=== PATIENT | female | born 1955 | race Caucasian/White ===

== ENCOUNTER 2020-03-13 07:47 | Outpatient (REF) | payer BC, SELFPAY ==
[2020-03-13 11:46] LABS: Estimated Average Glucose 223 mg/dL; Hemoglobin A1c % 9.4 %
[2020-03-13 12:01] LABS: Alanine Aminotransferase 44 U/L (0-31); Albumin Level 4.3 g/dL (3.5-5.0); Alkaline Phosphatase 57 U/L (39-117); Anion Gap 16 (12-20); Aspartate Amino Transferase 25 U/L (5-31); Bilirubin Total 0.6 mg/dL (0.0-1.0); Blood Urea Nitrogen 14 mg/dL (9-16); Calcium 9.2 mg/dL (8.4-10.2); Carbon Dioxide 30 mmol/L (22-29); Chloride 98 mmol/L (96-108); Cholesterol 148 mg/dL; Estimated Glomerular Filt Rate > 60; Glucose Fasting 217 mg/dL (60-99); HDL Cholesterol 40 mg/dL; LDL Cholesterol Calculated 77 mg/dl; Potassium 4.5 mmol/l (3.3-5.1); Sodium 139 mmol/L (135-145); Total Protein 6.9 g/dL (6.5-8.0); Triglycerides 159 mg/dL
[2020-03-13 12:08] LABS: Vitamin D 25-OH Total 33.2 ng/mL (>30)
[2020-03-13 12:40] LABS: Creatinine Urine 70.85 mg/dL; Microalbum/Creatinine Ratio Ur 9.8 ug/mg cr
== END 2020-03-13 07:48 | disposition home or self-care (01) ==
LOC: HO.HMGCLDS 07:47
PROVIDERS: PCP Internal Medicine; Visit Provider Internal Medicine
DX: E11.9 Type 2 diabetes mellitus without complications (principal); E66.01 Morbid (severe) obesity due to excess calories; E78.5 Hyperlipidemia, unspecified; I10 Essential (primary) hypertension; M81.0 Age-related osteoporosis without current pathological fracture
CPT/HCPCS: 80053; 80061; 82043; 82306; 83036

== ENCOUNTER 2020-07-10 06:16 | Outpatient (REF) | payer BC, SELFPAY ==
[2020-07-10 11:24] LABS: Estimated Average Glucose 212 mg/dL
[2020-07-10 11:45] LABS: Alanine Aminotransferase 39 U/L (0-31); Albumin Level 4.4 g/dL (3.5-5.0); Alkaline Phosphatase 58 U/L (39-117); Anion Gap 14 (12-20); Aspartate Amino Transferase 21 U/L (5-31); Bilirubin Total 0.7 mg/dL (0.0-1.0); Blood Urea Nitrogen 28 mg/dL (9-16); Calcium 9.4 mg/dL (8.4-10.2); Carbon Dioxide 29 mmol/L (22-29); Chloride 98 mmol/L (96-108); Cholesterol 143 mg/dL; Estimated Glomerular Filt Rate > 60; Glucose Fasting 262 mg/dL (60-99); HDL Cholesterol 42 mg/dL; LDL Cholesterol Calculated 71 mg/dl; Potassium 4.3 mmol/L (3.3-5.1); Sodium 137 mmol/L (135-145); Total Protein 7.1 g/dL (6.5-8.0); Triglycerides 153 mg/dL
[2020-07-10 12:07] LABS: Vitamin D 25-OH Total 36.6 ng/mL (>30)
== END 2020-07-10 06:17 | disposition home or self-care (01) ==
LOC: HO.HMGCLDS 06:16
PROVIDERS: PCP Internal Medicine; Visit Provider Internal Medicine
DX: E11.65 Type 2 diabetes mellitus with hyperglycemia (principal); E66.01 Morbid (severe) obesity due to excess calories; M81.0 Age-related osteoporosis without current pathological fracture; I10 Essential (primary) hypertension; E78.5 Hyperlipidemia, unspecified; Z79.4 Long term (current) use of insulin
CPT/HCPCS: 36415; 80053; 80061; 82043; 82306; 83036

== ENCOUNTER 2021-01-23 07:07 | Outpatient (REF) | payer BC, SELFPAY ==
[2021-01-23 12:12] LABS: Alanine Aminotransferase 41 U/L (0-31); Anion Gap 15 (12-20); Aspartate Amino Transferase 29 U/L (5-31); Blood Urea Nitrogen 13 mg/dL (9-16); Calcium 9.3 mg/dL (8.4-10.2); Carbon Dioxide 28 mmol/L (22-29); Chloride 102 mmol/L (96-108); Cholesterol 141 mg/dL; Estimated Glomerular Filt Rate > 60; Glucose Fasting 177 mg/dL (60-99); HDL Cholesterol 44 mg/dL; LDL Cholesterol Calculated 66 mg/dl; Potassium 4.2 mmol/L (3.3-5.1); Sodium 141 mmol/L (135-145); Triglycerides 159 mg/dL
[2021-01-23 12:15] LABS: Vitamin D 25-OH Total 36.1 ng/mL (>30)
== END 2021-01-23 07:08 | disposition home or self-care (01) ==
LOC: HO.HMGCLDS 07:07
PROVIDERS: PCP Internal Medicine; Visit Provider Internal Medicine
DX: E11.65 Type 2 diabetes mellitus with hyperglycemia (principal); E78.5 Hyperlipidemia, unspecified; I10 Essential (primary) hypertension; M81.0 Age-related osteoporosis without current pathological fracture; N95.1 Menopausal and female climacteric states; Z79.4 Long term (current) use of insulin
CPT/HCPCS: 36415; 80048; 80061; 82306; 84450; 84460

== ENCOUNTER 2021-05-24 08:50 | Outpatient (REF) | payer BC, SELFPAY ==
--- NOTE | ~2021-05-24 | MM_ITS ---
EXAMINATION: MM SCREENING DIGITAL BREAST TOMOSYNTHESIS, BILATERAL CLINICAL INFORMATION: Screening. Asymptomatic. The lifetime risk of breast cancer based on the Tyrer-Cuzick Model is 4.6%. COMPARISON: Mammography: December 10, 2018 and studies dating back to March 27, 2010 TECHNIQUE: Digital breast tomosynthesis is performed in both the craniocaudal and mediolateral oblique views along with computer-aided detection (CAD). Synthesized 2D images are generated from the tomosynthesis. Additional left breast exaggerated craniocaudal view performed. FINDINGS: The breasts are almost entirely fatty (ACR BI-RADS breast composition Category a). There are no significant masses, abnormal calcifications, or other abnormalities. MM/MM tomosynthesis screening BI IMPRESSION: There are no significant changes from prior study. ASSESSMENT: BI-RADS 1: Negative RECOMMENDATION: Routine annual mammography screening. This patient's information was entered into a reminder system with a target due date for their next mammogram.
--- NOTE | ~2021-05-24 | MM_ITS ---
EXAMINATION: BONE DENSITOMETRY CLINICAL INDICATION: Encounter for screening for osteoporosis. COMPARISON: Previous BD dated 04/15/2019 and baseline BD dated 12/14/1999. TECHNIQUE: Using a [employer] DXA System (software version: 13.1) manufactured by [employer], dual-energy x-ray absorptiometry was performed of the lumbar spine and left hip. The images are of good technical quality. Summary results are attached. FINDINGS: AP SPINE L2-L4 (excluding L1): The data of L1-L4 has been changed to exclude the L1 vertebral body, because degenerative changes at this level may cause overestimation of lumbar spine density. Current: BMD 1.019 g/cm2, Z-score -1.0, T-score -1.5, osteopenia, 8.9% increase from previous, 1.3% increase from baseline (<5% change is not significant). Prior: BMD 0.936 g/cm2. Baseline: BMD 1.006 g/cm2. LEFT FEMUR, NECK: Current: BMD 0.433 g/cm2, Z-score -3.5, T-score -4.4, osteoporosis. Prior: BMD 0.754 g/cm2. Baseline: BMD 0.920 g/cm2. LEFT FEMUR, TOTAL: Current: BMD 0.477 g/cm2, Z-score -3.7, T-score -4.2, osteoporosis, 46.3% decrease from previous, 50.3% decrease from baseline (<5% change is not significant). Prior: BMD 0.888 g/cm2. Baseline: BMD 0.960 g/cm2. IDENTIFIED RISK FACTORS: Menopause, hysterectomy, bilateral oophorectomy. HISTORY OF FRACTURE: None listed. MEDICATIONS: Calcium supplements or multivitamin, vitamin D. MM/XR DEXA axial skeleton IMPRESSION: 1. DIAGNOSIS: Osteoporosis based on the lowest T-score value of -4.4 in the femoral neck applying World Health Organization criteria. 2. 10-YEAR FRACTURE RISK PREDICTION, FRAX: According to the guidelines, FRAX calculation should only be performed on patients in the osteopenia bone density category. 3. Treatment Recommendations: NOF guidelines recommend consideration for treatment in postmenopausal women and men age 50 and older presenting with the following: -A hip or vertebral (clinical or morphometric) fracture. -T-score less than or equal to -2.5 at the femoral neck or spine after appropriate evaluation to exclude secondary causes. -Low bone mass at the hip or spine and a 10-year fracture probability by FRAX of greater than or equal to 3% for hip fracture or greater than or equal to 20% for major osteoporotic fracture based on the [place] adapted WHO algorithm. 4. Other Recommendations: All treatment decisions require clinical judgment and consideration of individual patient factors, including patient preferences, comorbidities, previous drug use, risk factors not captured in the FRAX model (e.g. frailty, falls, vitamin D deficiency, increased bone turnover, interval significant decline in bone density) and possible under or overestimation of fracture risk by FRAX. Additional medical evaluation for secondary cause of low bone mineral density may be appropriate. FUTURE SCAN RECOMMENDATION: People with diagnosed cases of osteoporosis or at high risk for fracture should have regular bone mineral density tests. For patients eligible for Medicare, routine testing is allowed once every 2 years. The testing frequency can be increased to one year for patients who have rapidly progressing disease, those who are receiving or discontinuing medical therapy to restore bone mass, or have additional risk factors.
== END 2021-05-24 08:51 | disposition home or self-care (01) ==
LOC: HO.MAMMO 08:50
PROVIDERS: PCP Internal Medicine; Visit Provider Internal Medicine
DX: Z12.31 Encounter for screening mammogram for malignant neoplasm of breast (principal); Z13.820 Encounter for screening for osteoporosis; M81.0 Age-related osteoporosis without current pathological fracture; Z78.0 Asymptomatic menopausal state; Z79.899 Other long term (current) drug therapy
CPT/HCPCS: 77063; 77067; 77080

== ENCOUNTER 2021-08-20 07:14 | Outpatient (REF) | payer BC, SELFPAY ==
[2021-08-20 12:36] LABS: Alanine Aminotransferase 43 U/L (0-31); Anion Gap 12 (12-20); Aspartate Amino Transferase 28 U/L (5-31); Blood Urea Nitrogen 20 mg/dL (9-16); Calcium 9.3 mg/dL (8.4-10.2); Carbon Dioxide 31 mmol/L (22-29); Chloride 99 mmol/L (96-108); Cholesterol 154 mg/dL; Estimated Glomerular Filt Rate > 60; Glucose Fasting 278 mg/dL (60-99); HDL Cholesterol 42 mg/dL; LDL Cholesterol Calculated 81 mg/dl; Potassium 4.7 mmol/L (3.3-5.1); Sodium 137 mmol/L (135-145); Triglycerides 155 mg/dL
[2021-08-20 12:38] LABS: Vitamin D 25-OH Total 36.2 ng/mL (>30)
== END 2021-08-20 07:15 | disposition home or self-care (01) ==
LOC: HO.HMGCLDS 07:14
PROVIDERS: Visit Provider Internal Medicine
DX: E78.5 Hyperlipidemia, unspecified (principal); I10 Essential (primary) hypertension; M81.0 Age-related osteoporosis without current pathological fracture; N95.1 Menopausal and female climacteric states
CPT/HCPCS: 36415; 80048; 80061; 82306; 84450; 84460

== ENCOUNTER 2022-02-26 06:56 | Outpatient (REF) | payer MEDICARE, SELFPAY ==
[2022-02-26 12:19] LABS: Alanine Aminotransferase 40 U/L (0-31); Anion Gap 16 (12-20); Aspartate Amino Transferase 22 U/L (5-31); Blood Urea Nitrogen 23 mg/dL (9-16); Calcium 9.9 mg/dL (8.4-10.2); Carbon Dioxide 30 mmol/L (22-29); Chloride 100 mmol/L (96-108); Cholesterol 157 mg/dL; Estimated Glomerular Filt Rate > 60; Glucose Fasting 186 mg/dL (60-99); HDL Cholesterol 45 mg/dL; LDL Cholesterol Calculated 83 mg/dl; Potassium 4.8 mmol/L (3.3-5.1); Sodium 141 mmol/L (135-145); Triglycerides 149 mg/dL
== END 2022-02-26 06:57 | disposition home or self-care (01) ==
LOC: HO.CHCLDS 06:56
PROVIDERS: PCP Internal Medicine; Visit Provider Internal Medicine
DX: E78.5 Hyperlipidemia, unspecified (principal); I10 Essential (primary) hypertension
CPT/HCPCS: 36415; 80048; 80061; 84450; 84460

== ENCOUNTER 2022-03-05 10:57 | Outpatient (REF) | payer MEDICARE, SELFPAY ==
[2022-03-05 15:17] LABS: Creatinine Urine 67.59 mg/dL; Microalbum/Creatinine Ratio Ur 11.8 ug/mg cr
== END 2022-03-05 10:58 | disposition home or self-care (01) ==
LOC: HO.HMGCLDS 10:57
PROVIDERS: PCP Internal Medicine; Visit Provider Internal Medicine
DX: E11.65 Type 2 diabetes mellitus with hyperglycemia (principal); Z79.4 Long term (current) use of insulin
CPT/HCPCS: 82043

== ENCOUNTER 2022-06-06 10:55 | Outpatient (REF) | payer MEDICARE, SELFPAY ==
--- NOTE | ~2022-06-06 | MM_ITS ---
EXAMINATION: MM SCREENING DIGITAL BREAST TOMOSYNTHESIS, BILATERAL CLINICAL INFORMATION: Screening. Asymptomatic. The lifetime risk of breast cancer based on the Tyrer-Cuzick Model is 4.2%. COMPARISON: Mammography: May 24, 2021 and studies dating back to March 27, 2010 TECHNIQUE: Digital breast tomosynthesis is performed in both the craniocaudal and mediolateral oblique views along with computer-aided detection (CAD). Synthesized 2D images are generated from the tomosynthesis. FINDINGS: There are scattered areas of fibroglandular density (ACR BI-RADS breast composition Category b). There are no significant masses, abnormal calcifications, or other abnormalities. MM/MM tomosynthesis screening BI IMPRESSION: No significant changes from prior exam. ASSESSMENT: BI-RADS 1: Negative RECOMMENDATION: Routine annual mammography screening. This patient's information was entered into a reminder system with a target due date for their next mammogram.
== END 2022-06-06 10:56 | disposition home or self-care (01) ==
LOC: HO.MAMMO 10:55
PROVIDERS: PCP Internal Medicine; Visit Provider Internal Medicine
DX: Z12.31 Encounter for screening mammogram for malignant neoplasm of breast (principal)
CPT/HCPCS: 77063; 77067

== ENCOUNTER 2022-08-28 06:46 | Outpatient (REF) | payer MEDICARE, SELFPAY ==
[2022-08-28 11:59] LABS: Alanine Aminotransferase 40 U/L (0-31); Aspartate Amino Transferase 24 U/L (5-31); Cholesterol 132 mg/dL; HDL Cholesterol 40 mg/dL; LDL Cholesterol Calculated 69 mg/dl; Triglycerides 116 mg/dL
== END 2022-08-28 06:47 | disposition home or self-care (01) ==
LOC: HO.HMGCLDS 06:46
PROVIDERS: PCP Internal Medicine; Visit Provider Internal Medicine
DX: E78.5 Hyperlipidemia, unspecified (principal); I10 Essential (primary) hypertension
CPT/HCPCS: 36415; 80061; 84450; 84460

== ENCOUNTER 2022-09-02 10:23 | Outpatient (AMB) | payer MEDICARE, SELFPAY ==
--- NOTE | 2022-09-02 10:29 | A.OFFPC_ITS ---
Vital Signs 09/02/22 10:32 Height 5 ft 4.5 in Weight 265 lb BMI 44.8 BP 146/66 H Blood Pressure Location Lt brachial Position Sitting Pulse 94 Pulse Source Pulse Oximeter Pulse Oximetry (%) 95 Oxygen Delivery Method Room Air Intake Visit Reasons: f/u lipids and HTN Intake Note: Pt is here today to f/u HTN and lipids Allergies iodine Allergy (Unknown, Verified 04/04/23 08:17) Hives Medication List - Last Reconciled 09/02/22 by Susan Shah MD cholecalciferol (vitamin D3) 50 mcg PO DAILY hydrochlorothiazide 25 mg PO DAILY insulin pump cart,automated,BT (Omnipod 5 G6 Pods (Gen 5) subcutaneous cartridge) As directed insulin regular hum U-500 conc (Humulin R U-500 (Concentrated) Insulin) Via Omnipod losartan 100 mg PO DAILY 90 days losartan-hydrochlorothiazide 100-25 mg 1 tab PO DAILY metformin 1,000 mg PO BID jdvcszdyxcit-Lj-kglw-minerals (Multiple Vitamin, Womens tablet) tabs PO semaglutide (Ozempic) 2 mg subcut QWEEK simvastatin 40 mg PO BEDTIME Tobacco use date assessed: 09/02/22 Fall risk assessment: No Falls in past year Last assessed Fall Risk: 09/02/22 HPI f/u lipids and HTN HPI Details 67-year-old lady Here today for follow-u p on her hypertension and dyslipidemia. Currently taking losartan hydrochlorothiazide, and simvastatin . Has been feeling well with no complaints at present time. Blood pressure today however is not at goal of less than 130/90 PFSH Medical History Facial skin lesion Menopause syndrome Endometrial cancer Breast cancer screening by mammogram Type 2 diabetes mellitus with hyperglycemia, with long-term current use of insulin Morbid obesity Osteoporosis Essential hypertension Dyslipidemia Surgical History Hx of colonoscopy History of mammogram History of knee surgery History of rotator cuff surgery History of total hysterectomy Hx of cholecystectomy Family History Father History of CVA (cerebrovascular accident) Mother CVD (cardiovascular disease) Heart disease Maternal Grandmother No problems noted. Maternal Aunt History of heart bypass surgery Maternal Uncle Alzheimer's disease Dementia Paternal Aunt Diabetes mellitus Paternal Uncle Diabetes mellitus Brother No problems noted. Brother No problems noted. Sister No problems noted. Other Substance use disorder Social History Housing: House Alcohol intake: current Alcohol intake frequency: a few times a month Patient Tobacco Use Status: Former Tobacco user Years Smoked: 26 years ago e-Cigarette/Vaping Use: Never Used Current occupational status: retired Cognitive needs: No Hearing needs: No Vision needs: Yes Questionnaire PHQ-9 Over the last 2 weeks, how often have you been bothered by any of the following problems? 1. Little interest or pleasure in doing things: not at all 2. Feeling down, depressed, or hopeless: not at all 3. Trouble falling or staying asleep, or sleeping too much: not at all 4. Feeling tired or having little energy: not at all 5. Poor appetite or overeating: not at all 6. Feeling bad about yourself - or that you are a failure or have let yourself or your family down: not at all 7. Trouble concentrating on things, such as reading the newspaper or watching television: not at all 8. Moving or speaking so slowly that other people could have noticed. Or the opposite - being so fidgety or restless that you have been moving around a lot more than usual: not at all 9. Thoughts that you would be better off or of hurting yourself in some way: not at all Total score: 0 Depression Screening Interpretation: Negative 08935 - PHQ-9 Billing: Yes Source: Developed by Drs. Erick Thayer, Laura Pope, Daniel Acosta and colleagues, with an educational mariel from [employer]. Thrive Questionnaire Date Thrive assessed: 09/02/22 I am a: Patient What is your living situation today?: I have a steady place to live Within the past 12 months, did the food you bought not last and you didn't have the money to get more?: Never true Within the past 12 months, did you worry whether your food would run out before you got money to buy more?: Never true Do you have trouble paying for medicines?: No Do you have trouble getting transportation to medical appointments?: No Do you have trouble paying your heating and electricity bill?: No Do you have trouble taking care of your child, family member or friend?: No Do you have trouble with day-to-day activities such as bathing, preparing meals, shopping, managing finances, etc.?: No Are you currently unemployed and looking for a job?: No Are you interested in more education?: No AUDIT C Alcohol Use Questionnaire (AUDIT-C) 1. How often do you have a drink containing alcohol?: Monthly or less 2. How many drinks containing alcohol do you have on a typical day when you are drinking?: 1 or 2 3. How often do you have six or more drinks on one occasion?: Never Total Score: 1 WALT-7 AMB Questionnaire WALT-7 Date WALT - 7 assessed: 09/02/22 Feeling nervous, anxious, or on edge: 0 = Not at all Not being able to stop or control worryin = Not at all Worrying too much about different things: 0 = Not at all Trouble relaxin = Not at all Being so restless that it is hard to sit still: 0 = Not at all Becoming easily annoyed or irritable: 0 = Not at all Feeling afraid as if something awful might happen: 0 = Not at all Total WALT-7 score (0-4 normal; 5-9 mild; 10-14 moderate; 15-21 severe): 0 Source: Developed by Drs. Erick Thayer, Laura Pope, Daniel Acosta and colleagues, with an educational mariel from [employer]. WALT-7 Assessment Billing WALT-7 Assessment Tool: WALT-7 Assessment 69626 Review of Systems Const Denies body aches, Denies fever(s), Denies headache(s), Denies malaise and Denies weakness Eyes Details: has appt with [facility] this pm Denies change in vision, Denies eye discharge and Denies itchy eyes ENT Denies vertigo, Denies dizziness, Denies headache(s), Denies nasal congestion, Denies nasal discharge, Denies post nasal drip and Denies tinnitus Card Denies chest pain, Denies lightheadedness, Denies palpitations and Denies dyspnea Resp Denies chest congestion, Denies cough, Denies dyspnea and Denies wheezing GI Denies abdominal pain, Denies change in bowel habits and Denies heartburn Denies urinary frequency, Denies dysuria and Denies urinary urgency Musc Denies myalgias, Reports arthralgias, Denies muscle cramps and Reports stiffness Skin/Breast Denies lesions and Denies rash Neuro Denies vertigo, Denies dizziness, Denies headache(s) and Denies weakness Psych Reports no additional complaints Endo Denies polydipsia, Denies polyuria and Denies palpitations Roel/Lymph Denies easy bruising Aller/Immun Denies itchy eyes, Denies seasonal rhinorrhea and Denies wheezing Physical exam (Primary Care) Vital Signs: Last Vital Signs Pulse 94 09/02/22 10:32 BP 146/66 H 09/02/22 10:32 Pulse Ox 95 09/02/22 10:32 Oxygen Delivery Method Room Air 09/02/22 10:32 BMI result Body Mass Index 44.8 Tobacco/Smoking Status: Tobacco use Status Tobacco use date assessed 09/02/22 09/02/22 10:34 Patient Tobacco Use Status Former Tobacco user 09/02/22 10:30 e-Cigarette/Vaping Use Never Used 09/02/22 10:30 PHQ-9: PHQ-9 Score PHQ-9: Total score 0 09/02/22 11:09 Depression Screening Interpretation: Negative Thrive Assessment: Date of Thrive Assessment Date Thrive assessed 09/02/22 09/02/22 11:09 Const General: comfortable, no acute distress and alert Nutritional Appearance: obese morbidly obese Orientation/consciousness: patient oriented x3 HENMT Head: Yes normocephalic Ears: external ears normal Face and sinus: Yes face symmetric Mouth: Normal oral and palatal mucosa present, oropharynx normal and moist mucous membranes Eyes General: appearance normal, both eyes and all related structures Neck Neck: Yes full ROM, Yes no lymphadenopathy and Yes supple Resp Auscultation: clear to auscultation bilaterally Cardio Other: S1-S2 present regular rate and rhythm GI Other: Obese, soft, nontender, no mass palpated Skin General skin exam: no rashes or lesions noted Neuro General: patient oriented x3, gait normal, moves all extremities, Normal light touch and pain sensation and no focal motor deficits Extrem General: Yes full ROM, Yes no joint enlargement, Yes no pedal edema, Yes no calf tenderness and Yes normal gait Results Reviewed Results Reviewed: RUN: 09/02/22 1046 PAGE 1 [facility] [address] [place] [id number] Wave Soldering Machine Operator: Bob Khan M.D. Specimen Inquiry Name: Bhavya Ko Age/Sex: 66/F : 1955 Unit#: [id number] Attend Dr: Susan Shah MD Re08/28/22 Status: DEP REF [facility] Disch: SPEC : [id number] KALE: 08/28/22 STATUS: COMP REQ : [id number] RECD: 08/28/[address]: Susan Shah MD COMP: 08/28/229 ENTERED: 08/28/[address]: ORDERED: AST, ALT, Lipid Panel Test Result Flag Reference Site AST (GOT) 24 5-31 U/L ALT (GPT) 40 H 0-31 U/L Triglyceride 116 mg/dL Desirable Triglyceride: less than 150 mg/dL Borderline High Triglyceride 150-199 mg/dL High Triglyceride: 200-499 mg/dL Very High Triglyceride: greater than or equal to 5OO mg/dL Chol 132 mg/dL Desirable Cholesterol: less than 200 mg/dL Borderline High Cholesterol: 200-239 mg/dL High Cholesterol: greater than 239 mg/dL LDL Calculated 69 mg/dl Desirable LDL: less than 100 mg/dL Near Optimal/Above Optimal LDL: 110-129 mg/dL Borderline High LDL: 130-159 mg/dL High LDL: 160-189 mg/dL Very High LDL: greater than or equal to 190 mg/dL HDL 40 mg/dL Desirable HDL: greater than 40 mg/dL Note: This HDL assay may give artificially low results in patients with liver disease. A Assessment and Plan Assessment & Plan (1) Essential hypertension: Code(s): I10 - Essential (primary) hypertension Plan: Blood pressure elevated. Continue losartan and HCTZ, but switched to losartan- HCTZ 100-25 mg tablet to take once a day in a.m.. Blood pressure goal is less than 130/80. . Reinforced importance of following a low sodium diet, getting regular exercise, and lowering stress levels. (2) Dyslipidemia: Code(s): E78.5 - Hyperlipidemia, unspecified Plan: Reviewed recent fasting lipid profile with patient with levels within normal . Continue with simvastatin 40 mg at bedtime , in addition to adherence to low-cholesterol diet and regular exercise, at least 30 minutes 3 to 4 times a week. Advised patient to make healthy food choices, eat more fruits, vegetables, whole grains, wild caught fish and low-fat dairy. Limit amount of meat and fried or fatty food products, as well as processed foods and fast foods. Follow-up scheduled with repeat fasting lipid panel in 6 months. Orders: Orders Alanine Aminotransferase 02/26/23 N95.1 - Menopausal and female climacteric states, E11.65 - Type 2 diabetes mellitus with hyperglycemia, Z79.4 - watermelon inspector (current) use of insulin, M81.0 - Age-related osteoporosis without current pathological fracture, I10 - Essential (primary) hypertension, E78.5 - Hyperlipidemia, unspecified, E66.01 - Morbid (severe) obesity due to excess calories Basic Metabolic Panel Fasting 02/26/23 N95.1 - Menopausal and female climacteric states, E11.65 - Type 2 diabetes mellitus with hyperglycemia, Z79.4 - watermelon inspector (current) use of insulin, M81.0 - Age-related osteoporosis without current pathological fracture, I10 - Essential (primary) hypertension, E78.5 - Hyperlipidemia, unspecified, E66.01 - Morbid (severe) obesity due to excess calories Lipid Panel 02/26/23 N95.1 - Menopausal and female climacteric states, E11.65 - Type 2 diabetes mellitus with hyperglycemia, Z79.4 - MCFP (current) use of insulin, M81.0 - Age-related osteoporosis without current pathological fracture, I10 - Essential (primary) hypertension, E78.5 - Hyperlipidemia, unspecified, E66.01 - Morbid (severe) obesity due to excess calories Aspartate Amino Transferase 02/26/23 N95.1 - Menopausal and female climacteric states, E11.65 - Type 2 diabetes mellitus with hyperglycemia, Z79.4 - MCFP (current) use of insulin, M81.0 - Age-related osteoporosis without current pathological fracture, I10 - Essential (primary) hypertension, E78.5 - Hyperlipidemia, unspecified, E66.01 - Morbid (severe) obesity due to excess calories Vitamin D 25-OH Total 02/26/23 N95.1 - Menopausal and female climacteric states, E11.65 - Type 2 diabetes mellitus with hyperglycemia, Z79.4 - MCFP (current) use of insulin, M81.0 - Age-related osteoporosis without current pathological fracture, I10 - Essential (primary) hypertension, E78.5 - Hyperlipidemia, unspecified, E66.01 - Morbid (severe) obesity due to excess calories Medications: New losartan-hydrochlorothiazide 100-25 mg 1 tab PO DAILY 90 tabs 1RF Coding Level of Care Code Est Pt Level 3 (09743) Diagnoses Essential hypertension I10 Dyslipidemia E78.5 Additional Codes WALT-7 Assessment Billing - WALT-7 Assessment Tool: WALT-7 Assessment 08795 ([id number])
[2022-09-02 10:32] VITALS: BP 146/66; PULSE 94; O2SAT 95; BMI 44.8
== END 2022-09-02 11:14 | disposition home or self-care (01) ==
LOC: HO.HMGC 10:23
PROVIDERS: PCP Internal Medicine; Visit Provider Internal Medicine
DX: I10 Essential (primary) hypertension (principal); E78.5 Hyperlipidemia, unspecified
CPT/HCPCS: 99213

== ENCOUNTER 2023-03-08 07:14 | Outpatient (REF) | payer MEDICARE, SELFPAY ==
[2023-03-08 12:28] LABS: Alanine Aminotransferase 39 U/L (0-31); Anion Gap 13 (12-20); Aspartate Amino Transferase 31 U/L (5-31); Blood Urea Nitrogen 30 mg/dL (9-16); Calcium 9.6 mg/dL (8.4-10.2); Carbon Dioxide 29 mmol/L (22-29); Chloride 100 mmol/L (96-108); Cholesterol 141 mg/dL (<200); Estimated Glomerular Filt Rate > 60; Glucose Fasting 176 mg/dL (60-99); HDL Cholesterol 45 mg/dL (>40); LDL Cholesterol Calculated 75 mg/dL (<100); Potassium 4.4 mmol/L (3.3-5.1); Sodium 138 mmol/L (135-145); Triglycerides 107 mg/dL (<150)
== END 2023-03-08 07:15 | disposition home or self-care (01) ==
LOC: HO.HMGCLDS 07:14
PROVIDERS: PCP Internal Medicine; Visit Provider Internal Medicine
DX: N95.1 Menopausal and female climacteric states (principal); E11.65 Type 2 diabetes mellitus with hyperglycemia; M81.0 Age-related osteoporosis without current pathological fracture; I10 Essential (primary) hypertension; E78.5 Hyperlipidemia, unspecified; E66.01 Morbid (severe) obesity due to excess calories; Z79.4 Long term (current) use of insulin
CPT/HCPCS: 36415; 80048; 80061; 82306; 84450; 84460

== ENCOUNTER 2023-03-11 10:42 | Outpatient (AMB) | payer MEDICARE, SELFPAY ==
[2023-03-11 11:39] VITALS: BP 142/80; PULSE 80; O2SAT 95; BMI 43.4
--- NOTE | 2023-03-11 11:39 | A.OFFVIS_ITS ---
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: No Accompanied by: Self / Same As Patient Allergies iodine Allergy (Unknown, Verified 04/04/23 08:17) Hives Medication List - Last Reconciled 04/04/23 by Susan Shah MD cholecalciferol (vitamin D3) 50 mcg PO DAILY hydrochlorothiazide 25 mg PO DAILY insulin pump cart,automated,BT (Omnipod 5 G6 Pods (Gen 5) subcutaneous cartridge) As directed insulin regular hum U-500 conc (Humulin R U-500 (Concentrated) Insulin) Via Omnipod losartan-hydrochlorothiazide 100-25 mg 1 tab PO DAILY metformin 1,000 mg PO BID gvdbnlpkvfbh-Ek-dnrq-minerals (Multiple Vitamin, Womens tablet) tabs PO semaglutide (Ozempic) 2 mg subcut QWEEK simvastatin 40 mg PO BEDTIME Do you need a note to return to daycare/school/sports/work: No HPI V G0439 HPI Details AWV ? 67 year old lady with hypertension, osteoporosis, dyslipidemia, morbid obesity, type 2 diabetes mellitus with long-term use of insulin, presents for her ? Annual Wellness Visit, initial visit. She is up-to-date with her screening mammogram done 06/06/2022, had screening colonoscopy done 05/01/[address] Bravo, to be repeated again in 2023. 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 She had a bone density scan 05/26/2021 which showed presence of osteoporosis, currently followed by endocrine clinic. She had a fasting lipid panel done 03/08/2023 which showed normal findings, and fasting blood sugar was done 03/08/2023 to same time at 176 mg/dL, has diabetes mellitus currently followed at endocrine clinic. She is up-to-date with her Shingrix vaccination and is due for her COVID pneumonia vaccine and flu shot ? Medical / Social History Reviewed? Past Medical History ?Yes . ? [place] of Care / Care Team list updated ?Yes . ? Surgical/Hospitalization History ?Yes . ? Current Medications (including OTC and supplements) ?Yes . ? Family History ?Yes . ? Tobacco Control form ?Yes . ? AUDIT-C (Alcohol use) form ?Yes . ? Illicit drug use in Social History ?Yes . ? Current diagnosis of depression? ?No ? Appropriate PHQ2/PHQ9 completed ?Yes . ? Data entered by ?Research Assistant Member and reviewed by provider ? Fall Risk ? Fall History? Have you had any falls with injury in the past year? ?No . ? Have you had two or more falls in the past year? ?No . ? Fall Risk Assessment: ?No falls in the past year . ? HRA filled out by the patient, reviewed by Provider and scanned. ? AWV ? Balance? Romberg ?Yes . ? Tandem walk ?Yes . ? Walk and Turn ?Yes . ? Rise from sit to stand ?Yes . ?Vision? Corrective lens ?Yes ? Vision screen ? Up-to-date, goes to the [facility] eye care in [place] ?Hearing? Whisper test ?pass . ?Written Plan?Completed. See Patient Documents.? [facility] Medical History Facial skin lesion Menopause syndrome Endometrial cancer Breast cancer screening by mammogram Type 2 diabetes mellitus with hyperglycemia, with long-term current use of insulin Morbid obesity Osteoporosis Essential hypertension Dyslipidemia Surgical History Hx of colonoscopy History of mammogram History of knee surgery History of rotator cuff surgery History of total hysterectomy Hx of cholecystectomy Family History Father History of CVA (cerebrovascular accident) Mother CVD (cardiovascular disease) Heart disease Maternal Grandmother No problems noted. Maternal Aunt History of heart bypass surgery Maternal Uncle Alzheimer's disease Dementia Paternal Aunt Diabetes mellitus Paternal Uncle Diabetes mellitus Brother No problems noted. Brother No problems noted. Sister No problems noted. Other Substance use disorder Social History Housing: House Alcohol intake: current Alcohol intake frequency: a few times a month Patient Tobacco Use Status: Former Tobacco user Years Smoked: 26 years ago e-Cigarette/Vaping Use: Never Used Current occupational status: retired Cognitive needs: No Hearing needs: No Vision needs: Yes Questionnaire Medicare Wellness Checkup What [age] What gender do you identify with?: female During the past 4 weeks, how much have you been bothered by emotional problems such as feeling anxious, depressed, irritable, sad or downhearted, and blue?: not at all During the past 4 weeks, has your physical & emotional health limited your social activities with family, friends, neighbors, or groups?: not at all During the past 4 weeks, how much bodily pain have you generally had?: no pain During the past 4 weeks, was someone available to help you if you needed & wanted help?: yes, some During the past 4 weeks, what was the hardest physical activity you could do for at least 2 minutes?: moderate Can you get to places out of walking distance without help? (For eg., can you travel alone on buses, taxis or drive your car?): Yes Can you go shopping for groceries or clothes without someone's help?: Yes Can you prepare your own meals?: Yes Can you do your housework without help?: Yes Because of any health problems, do you need the help of another person with your personal care needs such as eating, bathing, dressing or getting around the house?: No Can you handle your own money without help?: Yes During the past 4 weeks, how would you rate your health in general?: very good During the past 4 weeks how have things been going for you?: pretty well Are you having difficulties driving your car?: no Do you always fasten your seat belt when you are in a car?: yes, usually During past 4 weeks, have you been bothered by the following: never: Falling or dizzy when standing up, Sexual problems?, Trouble eating well?, Teeth or denture problems?, Problems using the telephone? and Tiredness or fatigue? Have you fallen 2 or more times in the past year?: No Are you afraid of falling?: No Are you a smoker?: no During the past 4 weeks, how many drinks of wine, beer, or other alcoholic beverages did you have?: no alcohol at all Do you exercise for about 20 minutes 3 or more times a week?: yes, most of the time Have you been given information to help with the following?: no: Hazards in your house that might hurt you? and no: Keeping track of your medications? How often do you have trouble taking medicines the way you have been told to take them?: I always take medicine as prescribed How confident are you that you can control & manage most of your health problems?: very confident What is your race?: White Mini Mental State Exam (MMSE) Orientation What is the (year) (season) (date) (day) (month)?: year (2022), season (Fall), date (03/11/2023), day (Friday) and month (February) Where are we (state) (county) (town or city) (hospital) (floor)?: state ([place]), county ([place]), town or city ([place]) and hospital/clinic ([facility]) Score Score: 9 Activity of Daily Living Bathing - sponge bath, tub bath or shower: receives no assistance (gets in/out by self, if usual bathing means Dressing - getting clothes from closets & drawers, including inner/outer garments & fasteners.: gets clothes & gets completely dressed without help Toileting - going to the 'toilet room' for urine/bowel elimination & cleaning self/arranging clothes: goes to toilet room, cleans self, arranges clothes without help Transfer: moves in & out of bed and chair without help (may use support object) Continence: has occasional 'accidents' Feeding: feeds self without help Total Score: 0 Information obtained from: patient Using telephone: independent Traveling: independent Shopping: independent Preparing meals: independent Housework: independent Taking medicine: independent Managing money: independent PHQ-9 Over the last 2 weeks, how often have you been bothered by any of the following problems? 1. Little interest or pleasure in doing things: not at all 2. Feeling down, depressed, or hopeless: not at all 3. Trouble falling or staying asleep, or sleeping too much: not at all 4. Feeling tired or having little energy: not at all 5. Poor appetite or overeating: not at all 6. Feeling bad about yourself - or that you are a failure or have let yourself or your family down: not at all 7. Trouble concentrating on things, such as reading the newspaper or watching television: not at all 8. Moving or speaking so slowly that other people could have noticed. Or the opposite - being so fidgety or restless that you have been moving around a lot more than usual: not at all 9. Thoughts that you would be better off or of hurting yourself in some way: not at all Total score: 0 Depression Screening Interpretation: Negative Depression Screening Done: Yes 24616 - PHQ-9 Billing: Yes Source: Developed by Drs. Erick Thayer, Daniel Eldridge and colleagues, with an educational mariel from [email or web address]. WALT-7 AMB Questionnaire WALT-7 Date WALT - 7 assessed: 03/11/23 Feeling nervous, anxious, or on edge: 0 = Not at all Not being able to stop or control worryin = Not at all Worrying too much about different things: 0 = Not at all Trouble relaxin = Not at all Being so restless that it is hard to sit still: 0 = Not at all Becoming easily annoyed or irritable: 0 = Not at all Feeling afraid as if something awful might happen: 0 = Not at all Total WALT-7 score (0-4 normal; 5-9 mild; 10-14 moderate; 15-21 severe): 0 Source: Developed by Drs. Erick Thayer, Daniel Eldridge and colleagues, with an educational mariel from [employer]. WALT-7 Assessment Billing WALT-7 Assessment Tool: WALT-7 Assessment 09198 Physical Exam Vital Signs: Last Vital Signs Pulse 80 03/11/23 11:39 BP 142/80 H 03/11/23 11:39 Pulse Ox 95 03/11/23 11:39 Oxygen Delivery Method Room Air 03/11/23 11:39 BMI result Body Mass Index 43.4 Immunizations pneumoc 20-werner conj-dip cr(PF) 0.5 mL IM syringe Performing Provider: Susan Shah MD [facility] Administered by: SALLY Adams on 03/11/23 12:28 Dose Route Admin Location Dispensed Lot Number Expiration Date [employer] Insecticide Expert 0.5 mL IM Right Deltoid 0.5 mL [id number] 11/27/23 6326-5412-07 [employer]/PFIZER VIS Given Date VIS Provided VIS Publication Date 03/11/23 Single Vaccine 21 Eligibility Eligibility Date Funding Source Not VFC Eligible 03/11/23 Private Results Reviewed Results Reviewed: NTERED: 03/08/23-[address]: ORDERED: Met Prof Fast, AST, ALT, Lipid Panel, Vitamin D 25-OH Test Result Flag Reference Site Sodium 138 135-145 mmol/L Potassium 4.4 3.3-5.1 mmol/L CL 100 96-108 mmol/L CO2 29 22-29 mmol/L Gap 13 12-20 BUN 30 H 9-16 mg/dL Creat 0.75 0.5-1.4 mg/dL EGFR > 60 NOTE: For -[place] individuals, multiply the result by 1.210. Chronic Kidney Disease: Estimated GFR < 60 mL/min/1.73m2 Severe Kidney Disease: Estimated GFR < 15 mL/min/1.73m2 FBS 176 H 60-99 mg/dL A fasting glucose of 126 mg/dl or greater on more than one occasion is considered diagnostic of diabetes. CA 9.6 8.4-10.2 mg/dL AST (GOT) 31 5-31 U/L ALT (GPT) 39 H 0-31 U/L Triglyceride 107 <150 mg/dL Desirable Triglyceride: less than 150 mg/dL Borderline High Triglyceride 150-199 mg/dL High Triglyceride: 200-499 mg/dL Very High Triglyceride: greater than or equal to 5OO mg/dL Cholesterol 141 <200 mg/dL Desirable Cholesterol: less than 200 mg/dL Borderline High Cholesterol: 200-239 mg/dL High Cholesterol: greater than 239 mg/dL LDL Calculated 75 <100 mg/dL Desirable LDL: less than 100 mg/dL Near Optimal/Above Optimal LDL: 110-129 mg/dL Borderline High LDL: 130-159 mg/dL High LDL: 160-189 mg/dL Very High LDL: greater than or equal to 190 mg/dL HDL 45 >40 mg/dL Desirable HDL: greater than 40 mg/dL Note: This HDL assay may give artificially low results in patients with liver disease. Vit D 25-OH Tot 59.0 >30 ng/mL Health Based Reference Values* < 20 ng/mL Deficient 20-30 ng/mL Insufficient > 30 ng/mL Sufficient Assessment & Plan Assessment & Plan (1) Encounter for subsequent annual wellness visit (AWV) in Medicare patient: Code(s): Z00.00 - Encounter for general adult medical examination without abnormal findings Plan: Medical wellness checklist reviewed, updated in discussed with patient.,, copy given to patient reminded to get her COVID booster, flu shot and Prevnar 20 given today (2) Essential hypertension: Code(s): I10 - Essential (primary) hypertension Plan: Goal blood pressure less than 130/90 peer advise to continue with losartan-HCTZ, and reinforced importance of following a low-salt low-cholesterol diet and getting regular exercise. (3) Dyslipidemia: Code(s): E78.5 - Hyperlipidemia, unspecified Plan: Recent fasting lipids are within normal limits, continued on simvastatin 40 mg at bedtime (4) Osteoporosis: Code(s): M81.0 - Age-related osteoporosis without current pathological fracture Qualifiers: Osteoporosis type: age-related Presence of current pathological fracture: without current pathological fracture Qualified Code(s): M81.0 - Age- related osteoporosis without current pathological fracture Plan: Continue with vitamin-D 3 supplements, declines starting treatment at present time (5) Morbid obesity: Code(s): E66.01 - Morbid (severe) obesity due to excess calories Plan: Reinforced importance of following recommended diet and getting regular exercise (6) Type 2 diabetes mellitus with hyperglycemia, with long-term current use of insulin: Code(s): E11.65 - Type 2 diabetes mellitus with hyperglycemia; Z79.4 - terminal make up operator (current) use of insulin Plan: Currently followed by endocrine clinic at [facility], on Ozempic, insulin pump and metformin (7) Advanced directives, counseling/discussion: Code(s): Z71.89 - Other specified counseling Plan: Initiated the conversation about Advanced Directives. Advanced Directives help patients prepare for current and future decisions about their medical treatment and place of care. Discussed with patient that it is a process where a patients current condition and prognosis are reviewed, their wishes for information regarding their illness are elicited, and likely medical dilemmas are presented and options discussed. She already had a healthcare proxy form completed last year, MOLST form completed today. These forms can be amended as needed, reviewed yearly and make changes as needed Orders: Orders Pneumococcal 20 Immunization 03/11/23 Z23 - Encounter for immunization Quality Reporting (2019) Depression/Bipolar (159/160/161/177) PHQ-9: Total score: 0 Coding Level of Care Code Medicare First (G0438) Diagnoses Encounter for subsequent annual wellness visit (AWV) in Medicare patient Z00.00 Essential hypertension I10 Dyslipidemia E78.5 Age-related osteoporosis without current pathological fracture M81.0 Osteoporosis type: age-related Presence of current pathological fracture: without current pathological fracture Morbid obesity E66.01 Type 2 diabetes mellitus with hyperglycemia, with long-term current use of insulin E11.65; Z79.4 Advanced directives, counseling/discussion Z71.89 CPT Codes Advance Care Planning - Time spent: 16-45 minutes ([id number]) Additional Codes WALT-7 Assessment Billing - WALT-7 Assessment Tool: WALT-7 Assessment 50131 ([id number]) Advance Care Planning Advance Care Planning discussion: Completed/Scanned Date of discussion: 03/11/23 Who was present: Patient Forms completed: SHARON Time spent: 16-45 minutes Actual minutes spent: 16
== END 2023-03-11 12:32 | disposition home or self-care (01) ==
PROVIDERS: Visit Provider Internal Medicine
DX: Z23 Encounter for immunization (principal)
CPT/HCPCS: 90471; 90677; 99497; G0438

== ENCOUNTER 2023-06-13 09:37 | Outpatient (REF) | payer MEDICARE, SELFPAY | END 2023-06-13 09:38 | disposition home or self-care (01) | LOC: HO.MAMMO 09:37 | PROVIDERS: PCP Internal Medicine; Visit Provider Internal Medicine | DX: Z12.31 Encounter for screening mammogram for malignant neoplasm of breast (principal) | CPT/HCPCS: 77063; 77067 ==

== ENCOUNTER → 2023-06-13 10:00 | Outpatient (BNV) | payer MEDICARE, SELFPAY | PROVIDERS: PCP Internal Medicine; Visit Provider Radiology Diagnostic Radiology | DX: Z12.31 Encounter for screening mammogram for malignant neoplasm of breast (principal) | CPT/HCPCS: 77063; 77067 ==

== ENCOUNTER 2024-03-22 10:55 | Outpatient (AMB) | payer MEDICARE, SELFPAY ==
[2024-03-22 11:34] VITALS: BP 140/60; PULSE 97; O2SAT 97; BMI 45.1
--- NOTE | 2024-03-22 11:34 | AM.OFFVISMDC ---
Intake Vital Signs 03/22/24 11:34 03/22/24 12:21 Height 5 ft 4 in Weight 263 lb BMI 45.1 BP 140/60 H 135/60 Blood Pressure Location Lt brachial Lt brachial Position Sitting Sitting Pulse 97 Pulse Source Pulse Oximeter Pulse Oximetry (%) 97 Oxygen Delivery Method Room Air Intake Visit Reasons: ULISES G0439 Intake Note: Pt is here today for her SWV Allergies iodine Allergy (Unknown, Verified 03/28/24 17:04) Hives Medication List - Last Reconciled 03/28/24 by Susan Shah MD cholecalciferol (vitamin D3) 50 mcg PO DAILY insulin pump cart,automated,BT (Omnipod 5 G6 Pods (Gen 5) subcutaneous cartridge) As directed insulin regular hum U-500 conc (Humulin R U-500 (Concentrated) Insulin) Via Omnipod losartan-hydrochlorothiazide 100-25 mg 1 tab PO DAILY metformin 1,000 mg PO BID xqngssuqecof-Su-ewmn-minerals (Multiple Vitamin, Womens tablet) tabs PO semaglutide (Ozempic) 2 mg subcut QWEEK simvastatin 40 mg PO BEDTIME HPI SWV G0439 HPI Details 68 year old lady with hypertension, osteoporosis, dyslipidemia, morbid obesity, type 2 diabetes mellitus with long-term use of insulin, presents for her ? Annual Wellness Visit, subsequent visit She is up-to-date with her screening mammogram done 06/13/2023, had screening colonoscopy done 05/01/[address] Bravo, to be repeated again in 2023. 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 She had a bone density scan07/16/2023 at [facility] which showed normal bone density in lumbar spine, and total hip and osteopenia with a T-score of-1.6 in femoral neck without any treatment, ordered by Dr. Heather Pike at [facility] endocrine clinic repeat bone density scan due again in 2025. She had a fasting lipid panel done 02/10/2024which showed normal findings, currently being followed at [facility] endocrine clinic for her diabetes mellitus, with latest hemoglobin A1c at 8.1% 02/19/2024, currently on insulin pump using Omnipod 5 and metformin and semaglutide at 2 mg once a week. She is up-to-date with her Shingrix , pneumonia vaccination and is reminded to get her COVID booster and flu shot ? Medical / Social History Reviewed? Past Medical History ?Yes . ? [place] of Care / Care Team list updated ?Yes . ? Surgical/Hospitalization History ?Yes . ? Current Medications (including OTC and supplements) ?Yes . ? Family History ?Yes . ? Tobacco Control form ?Yes . ? AUDIT-C (Alcohol use) form ?Yes . ? Illicit drug use in Social History ?Yes . ? Current diagnosis of depression? ?No ? Appropriate PHQ2/PHQ9 completed ?Yes . ? Data entered by ?Electronic Resources Librarian and reviewed by provider ? Fall Risk ? Fall History? Have you had any falls with injury in the past year? ?No . ? Have you had two or more falls in the past year? ?No . ? Fall Risk Assessment: ?No falls in the past year . ? HRA filled out by the patient, reviewed by Provider and scanned. ? AWV ? Balance? Romberg ?Yes . ? Tandem walk ?Yes . ? Walk and Turn ?Yes . ? Rise from sit to stand ?Yes . ?Vision? Corrective lens ?Yes ? Vision screen ? Up-to-date, goes to the [facility] eye care in [place], sees Luci Camarena , OD with last appointment 09/10/2023 ?Hearing? Whisper test ?pass . ?Written Plan?Completed. See Patient Documents.? [facility] Medical History (Updated 03/28/24 @ 17:41 by Susan Shah MD) Osteopenia Facial skin lesion Endometrial cancer Type 2 diabetes mellitus with hyperglycemia, with long-term current use of insulin Morbid obesity Essential hypertension Dyslipidemia Surgical History Hx of colonoscopy History of mammogram History of knee surgery History of rotator cuff surgery History of total hysterectomy Hx of cholecystectomy Family History Father History of CVA (cerebrovascular accident) Mother CVD (cardiovascular disease) Heart disease Maternal Grandmother No problems noted. Maternal Aunt History of heart bypass surgery Maternal Uncle Alzheimer's disease Dementia Paternal Aunt Diabetes mellitus Paternal Uncle Diabetes mellitus Brother No problems noted. Brother No problems noted. Sister No problems noted. Other Substance use disorder Social History Housing: House Alcohol intake: current Alcohol intake frequency: a few times a month Patient Tobacco Use Status: Former Tobacco user Years Smoked: 26 years ago e-Cigarette/Vaping Use: Never Used Current occupational status: retired Cognitive needs: No Hearing needs: No Vision needs: Yes Questionnaire Medicare Wellness Checkup [age] What gender do you identify with?: female During the past 4 weeks, how much have you been bothered by emotional problems such as feeling anxious, depressed, irritable, sad or downhearted, and blue?: not at all During the past 4 weeks, has your physical & emotional health limited your social activities with family, friends, neighbors, or groups?: not at all During the past 4 weeks, how much bodily pain have you generally had?: mild pain During the past 4 weeks, was someone available to help you if you needed & wanted help?: no, not at all During the past 4 weeks, what was the hardest physical activity you could do for at least 2 minutes?: moderate Can you get to places out of walking distance without help? (For eg., can you travel alone on buses, taxis or drive your car?): Yes Can you go shopping for groceries or clothes without someone's help?: Yes Can you prepare your own meals?: Yes Can you do your housework without help?: Yes Because of any health problems, do you need the help of another person with your personal care needs such as eating, bathing, dressing or getting around the house?: No Can you handle your own money without help?: Yes During the past 4 weeks, how would you rate your health in general?: very good During the past 4 weeks how have things been going for you?: very well; could hardly better Are you having difficulties driving your car?: no Do you always fasten your seat belt when you are in a car?: yes, usually During past 4 weeks, have you been bothered by the following: never: Falling or dizzy when standing up, Sexual problems?, Trouble eating well?, Teeth or denture problems? and Problems using the telephone? and sometimes: Tiredness or fatigue? Have you fallen 2 or more times in the past year?: No Are you afraid of falling?: No Are you a smoker?: no During the past 4 weeks, how many drinks of wine, beer, or other alcoholic beverages did you have?: no alcohol at all Do you exercise for about 20 minutes 3 or more times a week?: no, I usually do not exercise this much Have you been given information to help with the following?: yes: Hazards in your house that might hurt you? and no: Keeping track of your medications? How often do you have trouble taking medicines the way you have been told to take them?: I always take medicine as prescribed How confident are you that you can control & manage most of your health problems?: very confident What is your race?: White Mini Mental State Exam (MMSE) Orientation What is the (year) (season) (date) (day) (month)?: year (2023), season (Fall), date (03/22/2024), day (Friday) and month (February) Where are we (state) (county) (town or city) (hospital) (floor)?: state ([place]), county ([place]), town or city ([place]) and hospital/clinic ([facility]) Score Score: 9 Activity of Daily Living Bathing - sponge bath, tub bath or shower: receives no assistance (gets in/out by self, if usual bathing means Dressing - getting clothes from closets & drawers, including inner/outer garments & fasteners.: gets clothes & gets completely dressed without help Toileting - going to the 'toilet room' for urine/bowel elimination & cleaning self/arranging clothes: goes to toilet room, cleans self, arranges clothes without help Transfer: moves in & out of bed and chair without help (may use support object) Continence: has occasional 'accidents' Feeding: feeds self without help Total Score: 0 Information obtained from: patient Using telephone: independent Traveling: independent Shopping: independent Preparing meals: independent Housework: independent Taking medicine: independent Managing money: independent PHQ-9 Over the last 2 weeks, how often have you been bothered by any of the following problems? 1. Little interest or pleasure in doing things: not at all 2. Feeling down, depressed, or hopeless: not at all 3. Trouble falling or staying asleep, or sleeping too much: not at all 4. Feeling tired or having little energy: not at all 5. Poor appetite or overeating: not at all 6. Feeling bad about yourself - or that you are a failure or have let yourself or your family down: not at all 7. Trouble concentrating on things, such as reading the newspaper or watching television: not at all 8. Moving or speaking so slowly that other people could have noticed. Or the opposite - being so fidgety or restless that you have been moving around a lot more than usual: not at all 9. Thoughts that you would be better off or of hurting yourself in some way: not at all Total score: 0 Depression Screening Interpretation: Negative Depression Screening Done: Yes 12262 - PHQ-9 Billing: Yes Source: Developed by Drs. Erick Thayer, Laura Pope, Daniel Acosta and colleagues, with an educational mariel from [employer]. Physical Exam Vital Signs: Last Vital Signs Pulse 97 03/22/24 11:34 BP 135/60 03/22/24 12:21 Pulse Ox 97 03/22/24 11:34 Oxygen Delivery Method Room Air 03/22/24 11:34 BMI result Body Mass Index 45.1 Assessment & Plan Assessment & Plan (1) Encounter for subsequent annual wellness visit (AWV) in Medicare patient: Code(s): Z00.00 - Encounter for general adult medical examination without abnormal findings Plan: Medical wellness checklist reviewed, discussed with patient and updated. Copy given. Reminded to get her yearly flu vaccine and updated COVID booster. (2) Encounter for screening for malignant neoplasm of colon: Code(s): Z12.11 - Encounter for screening for malignant neoplasm of colon Plan: Referred to [facility] for her repeat screening colonoscopy (3) Type 2 diabetes mellitus with hyperglycemia, with long-term current use of insulin: Code(s): E11.65 - Type 2 diabetes mellitus with hyperglycemia; Z79.4 - skilled nursing (current) use of insulin Plan: Currently followed at [facility] endocrine clinic by Dr. Pike, currently on insulin pump, metformin and semaglutide (4) Morbid obesity: Code(s): E66.01 - Morbid (severe) obesity due to excess calories Plan: Was started on semaglutide by [facility] endocrine clinic (5) Essential hypertension: Code(s): I10 - Essential (primary) hypertension Plan: Blood pressure stable controlled on losartan-HCTZ 100-25 mg taken once a day (6) Dyslipidemia: Code(s): E78.5 - Hyperlipidemia, unspecified Plan: Recent fasting lipids are within normal limits, currently on simvastatin 40 mg at bedtime (7) Osteopenia: Code(s): M85.80 - Other specified disorders of bone density and structure, unspecified site Plan: Reviewed latest bone density scan results with patient, which showed now osteopenia, repeat due again in 2025, continue with regular weight-bearing exercise, taking adequate calcium from dietary sources and continue with vitamin-D 3 2000 units daily (8) Advanced directives, counseling/discussion: Code(s): Z71.89 - Other specified counseling Plan: Initiated the conversation about Advanced Directives. Advanced Directives help patients prepare for current and future decisions about their medical treatment and place of care. Discussed with patient that it is a process where a patients current condition and prognosis are reviewed, their wishes for information regarding their illness are elicited, and likely medical dilemmas are presented and options discussed. Healthcare proxy and MOLST form completed today. These forms can be amended as needed, reviewed yearly and make changes as needed Orders: Referrals Gastroenterology Referral Z12.11 - Encounter for screening for malignant neoplasm of colon Quality Reporting (2019) Depression/Bipolar (159/160/161/177) PHQ-9: Total score: 0 Coding Level of Care Code Medicare Subsequent (G0439) Diagnoses Encounter for subsequent annual wellness visit (AWV) in Medicare patient Z00.00 Encounter for screening for malignant neoplasm of colon Z12.11 Type 2 diabetes mellitus with hyperglycemia, with long-term current use of insulin E11.65; Z79.4 Morbid obesity E66.01 Essential hypertension I10 Dyslipidemia E78.5 Osteopenia M85.80 Advanced directives, counseling/discussion Z71.89 CPT Codes Advance Care Planning - Advance Care Planning discussion: On file, no changes ([id number]) Advance Care Planning - Time spent: 1-15 minutes, on File ([id number]) Additional Codes PHQ-9 - 91237 - PHQ-9 Billing: Yes ([id number]) Advance Care Planning Advance Care Planning discussion: On file, no changes Date of discussion: 03/22/24 Who was present: pateint Forms completed: Health Care Proxy and MOLST Time spent: 1-15 minutes, on File Actual minutes spent: 2
[2024-03-22 12:21] VITALS: BP 135/60
== END 2024-03-22 12:26 | disposition home or self-care (01) ==
PROVIDERS: PCP Internal Medicine; Visit Provider Internal Medicine
DX: Z00.00 Encounter for general adult medical examination without abnormal findings (principal); E11.65 Type 2 diabetes mellitus with hyperglycemia; Z79.4 Long term (current) use of insulin; E66.01 Morbid (severe) obesity due to excess calories; Z68.42 Body mass index [BMI] 45.0-49.9, adult; Z12.11 Encounter for screening for malignant neoplasm of colon; I10 Essential (primary) hypertension; E78.5 Hyperlipidemia, unspecified; M85.80 Other specified disorders of bone density and structure, unspecified site

== ENCOUNTER → 2024-03-22 10:55 | Outpatient (BNVA) | payer MEDICARE, SELFPAY | PROVIDERS: PCP Internal Medicine; Visit Provider Internal Medicine | DX: Z00.00 Encounter for general adult medical examination without abnormal findings (principal); E11.65 Type 2 diabetes mellitus with hyperglycemia; E66.01 Morbid (severe) obesity due to excess calories; Z68.42 Body mass index [BMI] 45.0-49.9, adult; I10 Essential (primary) hypertension; E78.5 Hyperlipidemia, unspecified; M85.80 Other specified disorders of bone density and structure, unspecified site; Z71.89 Other specified counseling; Z79.4 Long term (current) use of insulin; Z71.3 Dietary counseling and surveillance | CPT/HCPCS: 96127 ==

== ENCOUNTER 2024-06-18 09:58 | Outpatient (REF) | payer MEDICARE, SELFPAY ==
--- OUTSIDE RECORDS SUMMARY | 2024-06-18 10:41 | XMS_ITS | Patient Health Record ---
Author Organization [facility] Address [address] [place] [id number] Care Team Providers Care Donor Technician Name Role Phone Pablo GEE, Susan Primary Care Provider Erick Blankenship [phone] ALLERGIES Allergen (clinical drug ingredient) Drug/Non Drug Allergy documented on EMR Reaction Allergy Type Onset Date Status Iodine Unknown Drug Allergy Active bees (uncoded) Unknown Allergy Activ e REASON FOR REFERRAL No Information MEDICATIONS Medication SIG (Take, Route, Frequency, Duration) Notes Start Date End Date Status metFORMIN HCl 1000 MG 1 tablet with a me al Orally twice a day Active Losartan Potassium 50 MG 1 tablet Orally Once a day Active Simvastatin Active HumaLOG 100 UNIT/ML as needed Subcutaneo us as directed Active Vitamin D 1000 UNIT 1 tablet Orally Once a day Active Multivitamin Adults - Orally Active Aspir-81 81 MG 1 tablet Orally Once a day Active IMMUNIZATIONS Vaccine Route Administration Date Status Comme nts Influenza Unknown 12/27/2017 Administered SOCIAL HISTORY Tobacco Use: Social History Observation Description Date Details (start date - stop date) Former Smoker NA - NA Sex Assigned At : Social History Observation Description Sex Assigned At Unknown Tobacco Use/Smoking Question Answer Notes Patient is a former smoker When did you stop smoking? quit at age 38 How long has it been since you last smoked? > 10 years Alcohol Screen Question Answer Notes Did you have a drink contain ing alcohol in the past year? Yes How often did you have a dri nk containing alcohol in the past year? Monthly or less (1 point) How many drinks did you have on a typical day when you were drinking in the past year? 1 or 2 drinks (0 point) How often did you have 6 or more drinks on one occasion in the past year? Never (0 point) Points 1 Interpretation Negative PROBLEMS Problem Type ICD Code Onset Dates Problem Status W/U Status Risk SNOMED Code Notes Problem History of adenomatous polyp of colon (Z86.010) Active confirmed 775343302 Problem Encounter for screening for malignant neoplasm of colon (Z12.11) Active confirmed 190762141 Problem Pre-procedural examination (Z01.818) Active confirmed 266961509307847 Problem Lesion of ovary (N83.9) Active confirmed 029588951 Problem Abnormal CT scan, pelvis (R93.5) Active confirmed 83307296820844911 PLAN OF TREATMENT Pending Test Test Name Order Date US PELVIS 05/05/2018 Future Test Test Name Order Date COLONOSCOPY 03/05/2018 Next Appt Details Provider Name:Erick Martino Lawrence , 07/20/2024 02:00:00 PM, [address] [place] [address], [address], [place], [address], Insurance Providers Payer Name Payer Address Payer Phone Subscriber Number Group Number Insured Name Patient Relationship to Insured Coverage Start Date Coverage End Date MEDICARE OF [place] [address] [facility] [place] [address] [phone] [id number] GRACY CLINTON Self - patient is the insured MEDEX ATTN CLAIMS [address] [place] [address] [phone] [id number] GRACY CLINTON Self - patient is the insured MEDICAL (GENERAL) HISTORY Medical History History ICD Code IDDM--has an insulin pump Hypercholesterolemia Hypertension Denies [place],CVA,Lung disease,renal disease Colonoscopy in 2007 with a s mall tuibular adenoma, diverticulosis, internal and external hemorrhoids Arthritis Surgical History Surgery Date(Month/Year) Cholecystectomy 1976 Right knee
== END 2024-06-18 09:59 | disposition home or self-care (01) ==
LOC: HO.MAMMO 09:58
PROVIDERS: PCP Internal Medicine; Visit Provider Internal Medicine
DX: Z12.31 Encounter for screening mammogram for malignant neoplasm of breast (principal)
CPT/HCPCS: 77063; 77067

== ENCOUNTER → 2024-06-18 10:30 | Outpatient (BNV) | payer MEDICARE, SELFPAY | PROVIDERS: PCP Internal Medicine; Visit Provider Internal Medicine | DX: Z12.31 Encounter for screening mammogram for malignant neoplasm of breast (principal) | CPT/HCPCS: 77063; 77067 ==

== ENCOUNTER 2024-10-20 07:03 | Day surgery (SDC) | payer MEDICARE, SELFPAY ==
--- OUTSIDE RECORDS SUMMARY | 2024-08-31 09:21 | XMS_ITS | Patient Health Record ---
Author Organization [facility] Address [address] [place] [address] Care Team Providers Care General Office Worker Name Role Phone Pablo GEE, Susan Primary Care Provider Erick Blankenship Unavailable [phone] Allergies Allergen (clinical drug ingredient) Drug/Non Drug Allergy documented on EMR Reaction Allergy Type Onset Date Status Iodine Unknown Drug Allergy Active bees (uncoded) Unknown Allergy Activ e Reason For Referral No Information Medications Medication SIG (Take, Route, Frequency, Duration) Notes Start Date End Date Status Losartan Potassium-HCTZ 100-25 MG Oral for 90 Days Active HumaLOG 100 UNIT/ML as needed Subcutaneo us as directed Active Omnipod 5 [id number] Pods Gen 5 - for 30 Days Active Ozempic (0.25 or 0.5 MG/DOSE) Active Aleve Active Fish Oil Active metFORMIN HCl 500 MG 1 tablet with a lisa l Orally twice a day Active Multivitamin Adults - Orally Active Simvastatin 40 MG 1 tablet in the even ing Orally Once a day Active Immunizations Vaccine Route Administration Date Status Comme nts Influenza Unknown 12/27/2017 Administered Social History Tobacco Use: Social History Observation Description Date Details (start date - stop date) Former Smoker NA - NA Tobacco Use/Smoking Question Answer Notes Patient is [...] Never (0 point) Points 1 Interpretation Negative Section Notes: Nonsmoker > 10 years; no sig alcohol Nonsmoker > 10 years; no sig alcohol Problems Problem Type SNOMED Code ICD Code Onset Dates Problem Status W/U Status Risk Notes Problem 792791694 Encounter for screening for malignant neoplasm of colon (Z12.11) Active confirmed Problem 280804495 History of adenomatous polyp of colon (Z86.010) Active confirmed Problem skilled nursing current use of non-steroidal anti-inflammatory drug (472854303621534) NSAID long-term use (Z79.1) Active confirmed Problem 510975345384576 Pre-procedural examination (Z01.818) Active confirmed Problem 732251622 Lesion of ovary (N83.9) Active confirmed Problem 48840388939993045 Abnormal CT scan, pelvis (R93.5) Active confirmed Vital Signs Blood pressure diastolic 11 mm Hg 07/20/2024 Height 65 in 07/20/2024 Blood pressure systolic 111 mm Hg 07/20/2024 Weight 250 lbs 07/20/2024 BMI 41.6 kg/m2 07/20/2024 Encounters Encounter Location Date Provider Diagnosis [facility] [address] [place] [address] 07/20/2024 Erick Bravo History of adenomato us polyp of colon Z86.010 ; NSAID long-term use Z79.1 and Encounter for screening for malignant neoplasm of colon Z12.11 Assessments Encounter Date Diagnosis (ICD Code) Assessment Notes Treatment Notes Treatment Clinical Notes Section Notes 07/20/2024 History of adenomatous polyp of colon (ICD-10 - Z86.010) Overall, Bhavya appears well from a clinical standpoint and does not have any new or worrisome GI complaints. I did recommend a follow-up colonoscopy for further screening given the previous history of a tubular adenoma and her last colonoscopy being over 6 years ago. We did review the rationale for this in regard to colon cancer prevention. Full consent has been obtained for this, including risks of bleeding and perforation. The procedure will be done with monitored anesthesia care. She was given the below instructions regarding adjustment of her medications for the procedure. She has been given instructions to take some extra prep 2 days before the procedure to hopefully allow for a better preparation. Bhavya was comfortable with this plan. Thank you again for allowing me to participate in Bhavya's care. I shall continue to keep you advised of her progress. 07/20/2024 NSAID long-term use (ICD-10 - Z79.1) Overall, Bhavya appears well from a clinical standpoint and does not have any new or worrisome GI complaints. I did recommend a follow-up colonoscopy for further screening given the previous history of a tubular adenoma and her last colonoscopy being over 6 years ago. We did review the rationale for this in regard to colon cancer prevention. Full consent has been obtained for this, including risks of bleeding and perforation. The procedure will be done with monitored anesthesia care. She was given the below instructions regarding adjustment of her medications for the procedure. She has been given instructions to take some extra prep 2 days before the procedure to hopefully allow for a better preparation. Bhavya was comfortable with this plan. Thank you again for allowing me to participate in Bhavya's care. I shall continue to keep you advised of her progress. 07/20/2024 Encounter for screening for malignant neoplasm of colon (ICD-10 - Z12.11) Overall, Bhavya appears well from a clinical standpoint and does not have any new or worrisome GI complaints. I did recommend a follow-up colonoscopy for further screening given the previous history of a tubular adenoma and her last colonoscopy being over 6 years ago. We did review the rationale for this in regard to colon cancer prevention. Full consent has been obtained for this, including risks of bleeding and perforation. The procedure will be done with monitored anesthesia care. She was given the below instructions regarding adjustment of her medications for the procedure. She has been given instructions to take some extra prep 2 days before the procedure to hopefully allow for a better preparation. Bhavya was comfortable with this plan. Thank you again for allowing me to participate in Bhavya's care. I shall continue to keep you advised of her progress. Plan Of Treatment Pending Test Test Name Order Date Colonoscopy 07/20/2024 US PELVIS 05/05/2018 Future Test Test Name Order Date COLONOSCOPY 03/05/2018 Next Appt Details Provider Name:Erick Bravo , 10/20/2024 09:10:00 AM, [address] , [place], [place], [id number], Insurance Providers Payer Name Payer Address Payer Phone Subscriber Number Group Number Insured Name Patient Relationship to Insured Coverage Start Date Coverage End Date MEDICARE OF [place] [address] [place] [id number] BHAVYA CLINTON Self - patient is the insured 9 MEDEX ATTN CLAIMS [address] [place] [phone] [id number] BHAVYA CLINTON Self - patient is the insured Medical (General) History Medical History History ICD Code IDDM--has an insulin pump Hypercholesterolemia Hypertension Denies [place],CVA,Lung disease,renal disease Colonoscopy in 2007 with a s mall tubular adenoma, diverticulosis, internal and external hemorrhoids Arthritis Negative follow-up screening colonoscopy in 04/2018 but this was limited due to the prep, as well as the fact that I could not completely enter the cecum. She did have a negative follow-up CT Colonography on that day but with the incidental finding of a left adnexal mass with surgery as below. 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
--- OUTSIDE RECORDS SUMMARY | 2024-08-31 09:21 | XMS_ITS ---
Author Organization [facility] Address [address] [place] [address] Care Team Providers Care Rn Angiography Name Role Phone Pablo GEE, Susan Primary Care Provider Erick Blankenship Unavailable [phone] Allergies Allergen (clinical drug ingredient) Drug/Non Drug Allergy documented on EMR Reaction Allergy Type Onset Date Status Iodine Unknown Drug Allergy Active bees (uncoded) Unknown Allergy Activ e REASON FOR VISIT Patient presents today for a colon screening Medications Medication SIG (Take, Route, Frequency, Duration) Notes Start Date End Date Status HumaLOG 100 UNIT/ML as needed Subcutaneo us as directed Active Omnipod 5 [id number] Pods Gen 5 - for 30 Days Active Losartan Potassium-HCTZ 100-25 MG Oral for 90 Days Active Fish Oil Active metFORMIN HCl 500 MG 1 tablet with a lisa l Orally twice a day Active Multivitamin Adults - Orally Active Simvastatin 40 MG 1 tablet in the even ing Orally Once a day Active Ozempic (0.25 or 0.5 MG/DOSE) Active Aleve Active Social History Tobacco Use: Social History Observation [...] Problem Status W/U Status Risk Notes Problem MCC current use of non-steroidal anti-inflammat ory drug ([id number]) NSAID long-term use (Z79.1) Active confirmed Vital Signs Blood pressure systolic 111 mm Hg 07/21/19 25 Blood pressure diastolic 11 mm Hg 025 Height 65 in 07/20/2024 Weight 250 lbs 07/20/2024 BMI 41.6 kg/m2 07/20/2024 Encounters Encounter Location Date Provider Diagnosis [facility] [address] [facility] [address] [place] [address] 07/20/2024 Erick Bravo History of adenomato us [...] Test Test Name Order Date Colonoscopy 07/20/2024 Next Appt Details Follow Up: prn, Reason: Provider Name:Erick Bravo , 10/20/2024 09:10:00 AM, [address] [place] [address] , [place], [place], [id number], Progress Notes * BHAVYA CLINTON MDOB:1955 (68 yo F)Acc No.[id number]:07/20/2024 Progress Notes Patient:?BHAVYA CLINTON Provider:?Erick Bravo MD :1955???Age:68 Y???Sex:Female D ate:07/20/2024 Address:[address] [place] [address] [place] [id number] Pcp:Susan Shah MD Subjective: * Chief Complaints: * ???Patient presents today fo r a colon screening * HPI: ???incontinence:? I saw Bhavya in the office today for evaluation of her personal history of a tubular adenoma of the colon and need for colorectal cancer screening. I last saw Bhavya in April of 2018, at which time she underwent a follow-up screening colonoscopy. This exam did not reveal any polyps but was somewhat suboptimal in that the cecum could not be entered and evaluated, and the prep of the procedure was somewhat limited due to a lot of liquid stool. She underwent a CT-colonography that same day to complete the screening process. This did not reveal any other significant colonic pathology, but did reveal the incidental finding of a left adnexal mass. 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 She did not require any radiation treatments or other postoperative treatments. Since that time she has been feeling well from a GI standpoint. She enjoys a good appetite and denies any significant heartburn or dysphagia.. Her bowel movements have been fairly regular and without any signs of bleeding. She denies any abdominal pain, jaundice, nor unintentional weight loss. She denies any known family history of colorectal cancer. * ROS:?General/Constitutional:?Change in appetite?denies.?Chills?denies.?Fatigue?denies.?Ophthalmologic:?Comments?all negative.?ENT:?Comments?all negative.?Respiratory:?hemoptysis?denies.?Cough?denies.?Cardiovascular:?Chest pain?denies.?Orthopnea?denies.?Gastrointestinal:?Comments?See HPI for details.?Genitourinary:?Hematuria?denies.?Dysuria?denies.?Musculoskeletal:?Painful joints?Right knee.?Weakness?denies.?Skin:?Itching?denies.?Rash?denies.?Neurologic:?Headache?denies.?Seizures?denies.?Psychiatric:?Comments?all negative.? * Medical History:? * Surgical History:?Cholecyste ctomy 1977Right knee Complete Vaginal Hysterectomy---early cancer as above--no XRT---tumor was incidentally found with a CT colonography after the 2019 colonoscopy Right rotator cuff * Hospitalization/Major Diagno stic Procedure:?No Hospitalization History. * Family History:?Father: dece ased.?Mother: alive 88 yrs, diagnosed with Heart disease.? Celiac disease in some family members; no colorectal cancer in 1st-degree relatives. * Social History:?Tobacco Use:?Tobacco Use/Smoking?Patient is a?former smoker,?When did you stop smoking??quit at age 38,?How long has it been since you last smoked??> 10 years.?Drugs/Alcohol:?Alcohol Screen?Did you have a drink containing alcohol in the past year??Yes,?How often did you have a drink containing alcohol in the past year??Monthly or less (1 point), How many drinks did you have on a typical day when you were drinking in the past year??1 or 2 drinks (0 point),?How often did you have 6 or more drinks on one occasion in the past year??Never (0 point),?Points?1,?Interpretation?Negative.?Miscellaneous:?Marital status: single. Occupation: retired. ???Nonsmoker > 10 years; no sig alcohol. * Medications:?TakingOzempic ( 0.25 or 0.5 MG/DOSE) Aleve Fish Oil metFORMIN HCl 500 MG Tablet 1 tablet with a meal Orally twice a day Multivitamin Adults - Tablet Orally Simvastatin 40 MG Tablet 1 tablet in the evening Orally Once a day Losartan Potassium-HCTZ 100-25 MG Tablet Oral HumaLOG 100 UNIT/ML Solution as needed Subcutaneous as directed Omnipod 5 [id number] Pods Gen 5 - Miscellaneous Taking Ozempic (0.25 or 0.5 MG/DOSE) Taking Aleve Taking Fish Oil Taking metFORMIN HCl 500 MG Tablet 1 tablet with a meal Orally twice a day Taking Multivitamin Adults - Tablet Orally Taking Simvastatin 40 MG Tablet 1 tablet in the evening Orally Once a day Taking Losartan Potassium-HCTZ 100-25 MG Tablet Oral Taking HumaLOG 100 UNIT/ML Solution as needed Subcutaneous as directed Taking Omnipod 5 MblK0H2 Pods Gen 5 - Miscellaneous DiscontinuedLosartan Potassium 50 MG Tablet 1 tablet Orally Once a day Aspir-81 81 MG Tablet Delayed Release 1 tablet Orally Once a day Vitamin D 1000 UNIT Tablet 1 tablet Orally Once a day Medication List reviewed and reconciled with the patientDiscontinued Losartan Potassium 50 MG Tablet 1 tablet Orally Once a day Discontinued Aspir-81 81 MG Tablet Delayed Release 1 tablet Orally Once a day Discontinued Vitamin D 1000 UNIT Tablet 1 tablet Orally Once a day Medication List reviewed and reconciled with the patient * Allergies:?Iodinebeesyes[All ergies Verified] Objective: * Vitals:?Wt: 250 lbs, Ht: 65 in, BMI: 41.6 Index, BP: 111/11 mm Hg, Wt-k.4. * Examination: ???General Examination: ?GENERAL APPEARANCE:?pleasant, well nourished, well developed, in no acute distress.?EYES:?sclera non-icteric.?ORAL CAVITY:?mucosa moist.?NECK/THYROID:?no cervical lymphadenopathy, neck supple.?SKIN:?nonjaundiced, no spider angiomata.?HEART:?S1, S2 normal.?LUNGS:?clear to auscultation bilaterally.?ABDOMEN:?normal bowel sounds, no guarding or rigidity, no guarding or rigidity, no masses palpable, soft, nontender, nondistended.?EXTREMITIES:?no edema.?NEUROLOGIC:?alert and oriented.? Assessment: * Assessment: 1.?NSAID long-term use - Z79 .1 (Primary)???2.?History of adenomatous polyp of colon - Z86.010???3.?Encounter for screening for malignant neoplasm of colon - Z12.11??? Overall, Bhavya appears w ell from a clinical standpoint and does not [...] to keep you advised of her progress. Plan: * Treatment: * 2.?Encounter for screening for malignant neoplasm of colon?Imaging: Colonoscopy* With MAC.STOP OZEMPIC FOR AT LEAST 7 DAYS BEFORE THE COLONOSCOPY.Take 2 Dulcolax pills two days before the colonoscopy.Do not take the Metformin the night before or on the morning of the colonoscopyYou can review the diabetes med instructions with Dr. Pike from EndocrinologyStop fish oil and Aleve for 1 week before the colonoscopysched for 10/20/24 at 9:10 am * * Procedure Codes:?3017F COLOR ECTAL CA SCREEN DOC REV * Preventive Medicine:? ??Counseling:?Care goal follow-up plan:?Above Normal BMI Follow-up?Giving encouragement to exercise,?BMI management provided?Yes.? ??Urinary Incontinence:?Urinary Incontinence?Assessment:?Absent urgency.? ??Screenings:?Fall Risk Screening?Fall Risk Assessment:?No falls in the past year,?Screening:?No falls in the past year,?Assessment:?Not performed, no reason specified,?Plan of Care:?Not documented, no reason specified.? * Follow Up:?prn * * Sign off status: Completed true * Provider:?Erick Bravo MD Date:? 025 Generated for Sulemai michael/Cris/eTransmitting on:?08/31/2024 09:21 AM EDT History and Physical Notes * Examination Category Sub-Category Detail Notes Category Not es General Examination GENERAL APPEARANCE: pleasant , well nourished, well developed, in no acute distress HEAD: EYES: sclera non-icteric EARS: NOSE: THROAT: NECK/THYROID: no cervical lymphade nopathy, neck supple HEART: S1, S2 normal CHEST: LUNGS: clear to auscultatio n bilaterally ABDOMEN: normal bowel sounds, no guarding or rigidity, no guarding or rigidity, no masses palpable, soft, nontender, nondistended NEUROLOGIC: alert and oriented SKIN: nonjaundiced, no spi bailey angiomata EXTREMITIES: no edema PERIPHERAL PULSES: BACK: BREASTS: MUSCULOSKELETAL: MALE GENITOURINARY: LYMPH NODES: RECTAL EXAM: FEMALE GENITOURINARY: ORAL CAVITY: mucosa moist
[2024-10-18 13:56] VITALS: BMI 41.6
--- NOTE | 2024-10-19 10:10 | HO.ANESPROP2 ---
HPI - Anesthesia Eval Consult details Narrative: 68yo F for Colonoscopy Anesthesia Pre-Procedure Meds Is the patient on any of the following meds?: GLP1/DPP4 PMFSH Active Problems Active Problems: All Active Problems Osteopenia (Acute) Menopause syndrome (Acute) Type 2 diabetes mellitus with hyperglycemia, with long-term current use of insulin (Acute) Morbid obesity (Acute) Essential hypertension (Acute) Dyslipidemia (Acute) Past Medical History Medical History Osteopenia Facial skin lesion Endometrial cancer Type 2 diabetes mellitus with hyperglycemia, with long-term current use of insulin Morbid obesity Essential hypertension Dyslipidemia Family History Family History Father History of CVA (cerebrovascular accident) Mother CVD (cardiovascular disease) Heart disease Maternal Grandmother No problems noted. Maternal Aunt History of heart bypass surgery Maternal Uncle Alzheimer's disease Dementia Paternal Aunt Diabetes mellitus Paternal Uncle Diabetes mellitus Brother No problems noted. Brother No problems noted. Sister No problems noted. Other Substance use disorder Surgical History Surgical History Hx of colonoscopy History of mammogram History of knee surgery History of rotator cuff surgery History of total hysterectomy Hx of cholecystectomy Social History Social History Household Members Other:: lives alone Housing: House Are you a primary care professionals to a significant other at home: No Do you presently have visiting nurse or other home services: No Alcohol intake: current Alcohol intake frequency: a few times a month Patient Tobacco Use Status: Former Tobacco user Years Smoked: 26 years ago e-Cigarette/Vaping Use: Never Used Use of substances other than those prescribed or required for medical reasons: Yes Substance Use Type Other:: marijuana gummies Substance Use Frequency: Occasionally Have you been hit, kicked, punched, or otherwise hurt by someone within the past year? If so, by whom?: No Are you DNR?: No Advance Directives: No Advance Directives Information Provided: Yes Patient : No Current occupational status: retired Cognitive needs: No Hearing needs: No Vision needs: Yes Meds Allergies Allergy/AdvReac Type Severity Reaction Status Date / Time iodine Allergy Unknown Hives Verified 03/28/24 17:04 Home Medications ?Medication ?Instructions ?Recorded ?Confirmed ?Last Taken ?Type cholecalciferol (vitamin D3) 50 50 mcg PO DAILY 11/24/20 10/18/24 Unknown History mcg (2,000 unit) capsule metformin 500 mg tablet 1,000 mg PO BID 11/24/20 10/18/24 Unknown History vsyonkhzijze-Vy-pnoq-minerals 1 tab PO DAILY 11/24/20 10/18/24 Unknown History (Multiple Vitamin, Womens tablet) insulin regular hum U-500 conc 500 unit subcut 03/07/22 03/28/24 Unknown History unit/mL subcutaneous soln (Humulin R U-500 (Concentrated) Insulin) insulin pump cart,automated,BT #5 ea 09/02/22 03/28/24 Unknown History (Omnipod 5 G6 Pods (Gen 5) subcutaneous cartridge) semaglutide 2 mg/dose (8 mg/3 mL) 2 mg subcut QWEEK 09/02/22 10/20/24 10/10/24 History subcutaneous pen injector (Ozempic) Exam Height,Weight and Vital Signs: Height 5 ft 5 in Weight 113.398 kg Assessment and Plan Assessment Anesthesia Assessment: Chart Reviewed
[2024-10-20 07:20] VITALS: BMI 19.0; BMI 41.9
[2024-10-20 07:46] VITALS: BP 111/47; PULSE 78; RESP 18; TEMP 35.7; O2SAT 94
[2024-10-20] MEDS: Lactated Ringers 1,000 ML 100 ML IVCONT (07:56)
--- NOTE | 2024-10-20 07:57 | HO.ANESPROP2 ---
[facility] Active Problems Active Problems: All Active Problems (Updated 03/28/24 @ 17:41 by Susan Shah MD) Osteopenia (Acute) Menopause syndrome (Acute) Type 2 diabetes mellitus with hyperglycemia, with long-term current use of insulin (Acute) Morbid obesity (Acute) Essential hypertension (Acute) Dyslipidemia (Acute) Past Medical History Medical History Osteopenia Facial skin lesion Endometrial cancer Type 2 diabetes mellitus with hyperglycemia, with long-term current use of insulin Morbid obesity Essential hypertension Dyslipidemia Functional capacity: independent ambulation Patient : No Family History Family History Father History of CVA (cerebrovascular accident) Mother CVD (cardiovascular disease) Heart disease Maternal Grandmother No problems noted. Maternal Aunt History of heart bypass surgery Maternal Uncle Alzheimer's disease Dementia Paternal Aunt Diabetes mellitus Paternal Uncle Diabetes mellitus Brother No problems noted. Brother No problems noted. Sister No problems noted. Other Substance use disorder Family history of problems with anesthesia: No Surgical History Surgical History Hx of colonoscopy History of mammogram History of knee surgery History of rotator cuff surgery History of total hysterectomy Hx of cholecystectomy History of Problems with Anesthesia: No Social History Social History Household Members Other:: lives alone Housing: House Are you a primary vocational childcare teacher to a significant other at home: No Do you presently have visiting nurse or other home services: No Alcohol intake: current Alcohol intake frequency: a few times a month Patient Tobacco Use Status: Former Tobacco user Years Smoked: 26 years ago e-Cigarette/Vaping Use: Never Used Use of substances other than those prescribed or required for medical reasons: Yes Substance Use Type Other:: marijuana gummies Substance Use Frequency: Occasionally Have you been hit, kicked, punched, or otherwise hurt by someone within the past year? If so, by whom?: No Are you DNR?: No Advance Directives: No Advance Directives Information Provided: Yes Current occupational status: retired Cognitive needs: No Hearing needs: No Vision needs: Yes Meds Allergies Allergy/AdvReac Type Severity Reaction Status Date / Time iodine Allergy Unknown Hives Verified 03/28/24 17:04 Active Medications: Current Medications Lactated Ringer's (Lr) 1,000 mls @ 100 mls/hr IVCONT .Q10H DARIAN Last Admin: 10/20/24 07:56 Dose: 100 mls/hr Sodium Biphosphate/Sodium Phosphate (Sodium Phosphate,Nolan-Dibasic 133 Ml Enema) 133 ml MS ONCE PRN PRN Reason: Poor Colonoscopy Prep Results Home Medications ?Medication ?Instructions ?Recorded ?Confirmed ?Last Taken ?Type cholecalciferol (vitamin D3) 50 50 mcg PO DAILY 11/24/20 10/18/24 Unknown History mcg (2,000 unit) capsule metformin 500 mg tablet 1,000 mg PO BID 11/24/20 10/18/24 Unknown History bvqqutthpwer-Xv-feeh-minerals 1 tab PO DAILY 11/24/20 10/18/24 Unknown History (Multiple Vitamin, Womens tablet) insulin regular hum U-500 conc 500 unit subcut 03/07/22 03/28/24 Unknown History unit/mL subcutaneous soln (Humulin R U-500 (Concentrated) Insulin) insulin pump cart,automated,BT #5 ea 09/02/22 03/28/24 Unknown History (Omnipod 5 G6 Pods (Gen 5) subcutaneous cartridge) semaglutide 2 mg/dose (8 mg/3 mL) 2 mg subcut QWEEK 09/02/22 10/20/24 10/10/24 History subcutaneous pen injector (Ozempic) Exam Height,Weight and Vital Signs: Height 5 ft 5 in Weight 51.8 kg Last Vital Signs Temp 96.3 F L 10/20/24 07:46 Pulse 78 10/20/24 07:46 Resp 18 10/20/24 07:46 BP 111/47 L 10/20/24 07:46 Pulse Ox 94 10/20/24 07:46 O2 Del Method Room Air 10/20/24 07:46 Airway Mallampati Class: III TM Dist: >3cm Neck ROM: Full Heart: r Lungs: CTA Assessment and Plan Final Anesthetic Review Family History of Problems with Anesthesia: No History of Problems with Anesthesia: No NPO: Yes ASA Class: III Final Preanesthetic Review: Meds/Allgs Chart Reviewed, Consent Obtained/Reviewed and Anes Risks/Benef Reviewed Patient Risk: Intermediate Procedure Risk: Low Anesthetic Plan Anesthetic Plan: MAC:
[2024-10-20 09:22] VITALS: BP 139/55; PULSE 84; RESP 16; TEMP 36.7; O2SAT 93
--- NOTE | 2024-10-20 09:26 | P.BOP_ITS ---
Brief Operative Note Date of Service: 10/20/24 Pre-op diagnosis: Screening Post-op diagnosis: other (Colon polyp) Procedure: Colonoscopy to the cecum and TI with hot snare polypectomy x 1 Surgeon: Erick Bravo MD Anesthesia: MAC Was an Auto Painter Helper used for this Procedure?: No Estimated blood loss (mL): 0 Pathology: other (A. Ascending colon polyp) Condition: stable Disposition: PACU
[2024-10-20 09:37] VITALS: BP 140/58; PULSE 77; RESP 16; TEMP 36.9; O2SAT 95
--- NOTE | 2024-10-20 10:16 | OP_ITS ---
DATE OF SERVICE: 10/20/2024 SURGEON: Erick Bravo MD INDICATIONS: The patient presents for followup of personal history of tubular adenoma of the colon and need for colorectal cancer screening. Full consent has been obtained from her for this, including risks of bleeding and perforation. PREOPERATIVE DIAGNOSIS: POSTOPERATIVE DIAGNOSIS: PROCEDURE PERFORMED: Colonoscopy to cecum and terminal ileum with hot snare polypectomy. ESTIMATED BLOOD LOSS: COMPLICATIONS: ANESTHESIA: Medication used, monitored anesthesia care. ASSISTANTS: SPECIMENS: PREOPERATIVE DIAGNOSES: Colorectal cancer screening and personal history of tubular adenoma of the colon. POSTOPERATIVE DIAGNOSES: Colorectal cancer screening and personal history of tubular adenoma of the colon, colon polyp, diverticulosis, and internal hemorrhoids. DESCRIPTION OF PROCEDURE: The patient was placed in the left lateral decubitus position. The digital rectal exam revealed no abnormalities. The Olympus video pediatric colonoscope was entered into the rectum and advanced easily to the cecum. Once in the cecum, I did identify normal-appearing cecal pouch with appendiceal orifice and a normal-appearing ileocecal valve. The terminal ileum was cannulated and appeared normal. The scope withdrawn back in the colon. The entire cecum and ileocecal valve appeared normal. The scope was then slowly withdrawn assessing all mucosal surfaces carefully. Preparation was excellent. In the proximal ascending colon on a fold, there was an approximately 12 mm flat, but raised polyp, which was removed in piecemeal fashion with a hot snare polypectomy with pieces recovered with suction. Post- polypectomy, the polypectomy site appeared clean and without any sign of residual polyp nor bleeding. I did not visualize any other polyps, colitis, nor angiodysplasia. There was a mild amount of sigmoid diverticulosis. In the rectum, scope was retroflexed visualizing internal hemorrhoids, but no other pathology. The rectal mucosa appeared normal. The scope was straightened and withdrawn from the patient. She tolerated the procedure well and was returned to the recovery area in stable condition. IMPRESSION: 1. Colon polyp. 2. Diverticulosis. 3. Internal hemorrhoids. PLAN: The results of the pathology will be checked. I would recommend a repeat colonoscopy in 5 years for further screening. She was advised not to use any aspirin and NSAIDs for 1 week. MD BRIANA Segovia/ALAN / [id number] [facility]
--- NOTE | 2024-10-20 10:24 | HO.POSTANES ---
Post Anesthesia Evaluation Post Anesthesia Evaluation Date of Service: 10/20/24 Vital Signs: Vital Signs Temp Pulse Resp BP Pulse Ox O2 Del Method 10/20/24 09:37 98.4 F 77 16 140/58 H 95 Room Air 10/20/24 09:22 98.0 F 84 16 139/55 L 93 Room Air 10/20/24 07:46 96.3 F L 78 18 111/47 L 94 Room Air Anesthesia: Monitored Mental Status: Awake Pain Control: Satisfactory Nausea/Vomiting: None Hydration: Adequate Anesthesia-Related Issues: No Anes. Related Issues
== END 2024-10-20 10:07 | disposition home or self-care (01) ==
PROVIDERS: PCP Internal Medicine; Visit Provider Internal Medicine
PROC: 0DJD8ZZ Inspection of Lower Intestinal Tract, Via Natural or Artificial Opening Endoscopic (ICD-10-PCS; CPT 45378; principal; 2024-10-20 08:10)
DX: Z12.11 Encounter for screening for malignant neoplasm of colon (principal); D12.2 Benign neoplasm of ascending colon; K57.30 Diverticulosis of large intestine without perforation or abscess without bleeding; Z86.0101 Personal history of adenomatous and serrated colon polyps; K64.8 Other hemorrhoids; E11.9 Type 2 diabetes mellitus without complications; I10 Essential (primary) hypertension; E78.00 Pure hypercholesterolemia, unspecified; Z79.4 Long term (current) use of insulin; Z96.41 Presence of insulin pump (external) (internal); Z79.02 Long term (current) use of antithrombotics/antiplatelets; Z79.899 Other long term (current) drug therapy
CPT/HCPCS: 45385; 88305; J2003; J2704

== ENCOUNTER 2025-03-23 10:43 | Outpatient (AMB) | payer MEDICARE, SELFPAY ==
--- NOTE | 2025-03-23 10:50 | AM.OFFVISMDC ---
Intake Vital Signs 03/23/25 10:51 Height 5 ft 5 in Weight 257 lb BMI 42.8 BP 134/64 Blood Pressure Location Lt brachial Position Sitting Respiration 16 Pulse 95 Pulse Source Pulse Oximeter Temp 98.1 F Temp Source Oral Pulse Oximetry (%) 95 Oxygen Delivery Method Room Air Intake Visit Reasons: [facility] G0439 Bending Roll Hand Required: No Allergies iodine Allergy (Unknown, Verified 03/23/25 11:01) Hives Medication List - Last Reconciled 03/23/25 by Susan Shah MD cholecalciferol (vitamin D3) 50 mcg PO DAILY insulin pump cart,automated,BT (Omnipod 5 G6 Pods (Gen 5) subcutaneous cartridge) As directed insulin regular hum U-500 conc (Humulin R U-500 (Concentrated) Insulin) Via Omnipod losartan-hydrochlorothiazide 100-25 mg 1 tab PO DAILY metformin 1,000 mg PO BID bzlrmxtmlbgc-Sy-zziy-minerals (Multiple Vitamin, Womens tablet) 1 tab PO DAILY semaglutide (Ozempic) 2 mg subcut QWEEK simvastatin 40 mg PO BEDTIME HPI [facility] G0439 HPI Details 69 year old lady with past medical history of hypertension, osteopenia of left femoral neck dyslipidemia, morbid obesity, type 2 diabetes mellitus with long-term use of insulin, presents for her ? Annual Wellness Visit, subsequent visit. She is up-to-date with her screening mammogram done 06/18/2024 with benign findings, had screening colonoscopy done 10/20/[address] Bravo, to be repeated again in 2029 due to removal of a colonic polyp. 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 She had a bone density scan 09/10/2023 at [facility] which showed normal bone density in lumbar spine, and total hip and osteopenia with a T-score of-1.6 in femoral neck without any treatment, ordered by Dr. Heather Pike at [facility] endocrine clinic repeat bone density scan due again in 2025. She had a fasting lipid panel done 02/10/2024which showed normal findings, currently being followed at [facility] endocrine clinic for her diabetes mellitus, with latest hemoglobin A1c at 7.3% on 02/17/2025, currently on insulin pump using Omnipod 5 and metformin and semaglutide at 2 mg once a week. She is up-to-date with her Shingrix , pneumonia vaccination and reminded to get her COVID booster and flu shot ? Medical / Social History Reviewed? Past Medical History ?Yes . ? [place] of Care / Care Team list updated ?Yes . ? Surgical/Hospitalization History ?Yes . ? Current Medications (including OTC and supplements) ?Yes . ? Family History ?Yes . ? Tobacco Control form ?Yes . ? AUDIT-C (Alcohol use) form ?Yes . ? Illicit drug use in Social History ?Yes . ? Current diagnosis of depression? ?No ? Appropriate PHQ2/PHQ9 completed ?Yes . ? Data entered by ?[employer] and reviewed by provider ? Fall Risk ? Fall History? Have you had any falls with injury in the past year? ?No . ? Have you had two or more falls in the past year? ?No . ? Fall Risk Assessment: ?No falls in the past year . ? HRA filled out by the patient, reviewed by Provider and scanned. ? AWV ? Balance? Romberg- negative ? Tandem walk ?Yes . ? Walk and Turn ?Yes . ? Rise from sit to stand ?Yes . ?Vision? Corrective lens ?Yes ? Vision screen ? Up-to-date, goes to the [facility] eye care in [place], sees Luci Camarena , OD ?Hearing? Whisper test ?pass . ?Written Plan?Completed. MOLST done 03/11/2023 and healthcare proxy done 03/06/2022? [facility] Medical History (Updated 03/23/25 @ 11:36 by Susan Shah MD) Osteopenia Endometrial cancer Type 2 diabetes mellitus with hyperglycemia, with long-term current use of insulin Morbid obesity Essential hypertension Dyslipidemia Surgical History Hx of colonoscopy History of mammogram History of knee surgery History of rotator cuff surgery History of total hysterectomy Hx of cholecystectomy Family History Father History of CVA (cerebrovascular accident) Mother CVD (cardiovascular disease) Heart disease Maternal Grandmother No problems noted. Maternal Aunt History of heart bypass surgery Maternal Uncle Alzheimer's disease Dementia Paternal Aunt Diabetes mellitus Paternal Uncle Diabetes mellitus Brother No problems noted. Brother No problems noted. Sister No problems noted. Other Substance use disorder Social History Household Members Other:: lives alone Housing: House Are you a primary home care companion to a significant other at home: No Do you presently have visiting nurse or other home services: No Alcohol intake: former Patient Tobacco Use Status: Former Tobacco user Years Smoked: 26 years ago e-Cigarette/Vaping Use: Never Used Current occupational status: retired Cognitive needs: No Hearing needs: No Vision needs: Yes Questionnaire Medicare Wellness Checkup [age] What gender do you identify with?: female During the past 4 weeks, how much have you been bothered by emotional problems such as feeling anxious, depressed, irritable, sad or downhearted, and blue?: not at all During the past 4 weeks, has your physical & emotional health limited your social activities with family, friends, neighbors, or groups?: not at all During the past 4 weeks, how much bodily pain have you generally had?: no pain During the past 4 weeks, was someone available to help you if you needed & wanted help?: yes, some During the past 4 weeks, what was the hardest physical activity you could do for at least 2 minutes?: light Can you get to places out of walking distance without help? (For eg., can you travel alone on buses, taxis or drive your car?): Yes Can you go shopping for groceries or clothes without someone's help?: Yes Can you prepare your own meals?: Yes Can you do your housework without help?: Yes Because of any health problems, do you need the help of another person with your personal care needs such as eating, bathing, dressing or getting around the house?: No Can you handle your own money without help?: Yes During the past 4 weeks, how would you rate your health in general?: good During the past 4 weeks how have things been going for you?: pretty well Are you having difficulties driving your car?: no Do you always fasten your seat belt when you are in a car?: yes, usually During past 4 weeks, have you been bothered by the following: never: Sexual problems?, Teeth or denture problems?, Problems using the telephone? and Tiredness or fatigue? and sometimes: Trouble eating well? Have you fallen 2 or more times in the past year?: No Are you afraid of falling?: No Are you a smoker?: no During the past 4 weeks, how many drinks of wine, beer, or other alcoholic beverages did you have?: no alcohol at all Do you exercise for about 20 minutes 3 or more times a week?: no, I usually do not exercise this much Have you been given information to help with the following?: no: Hazards in your house that might hurt you? and no: Keeping track of your medications? How often do you have trouble taking medicines the way you have been told to take them?: I always take medicine as prescribed How confident are you that you can control & manage most of your health problems?: very confident What is your race?: White Mini Mental State Exam (MMSE) Orientation What is the (year) (season) (date) (day) (month)?: year (2024), season (Fall), date (03/23/25), day (Friday) and month () Where are we (state) (county) (town or city) (hospital) (floor)?: state ([facility]), county ([place]), town or city ([place]) and [place] Score Score: 9 Activity of Daily Living Bathing - sponge bath, tub bath or shower: receives no assistance (gets in/out by self, if usual bathing means Dressing - getting clothes from closets & drawers, including inner/outer garments & fasteners.: gets clothes & gets completely dressed without help Toileting - going to the 'toilet room' for urine/bowel elimination & cleaning self/arranging clothes: goes to toilet room, cleans self, arranges clothes without help Transfer: moves in & out of bed and chair without help (may use support object) Continence: has occasional 'accidents' Feeding: feeds self without help Total Score: 0 Information obtained from: patient Using telephone: independent Traveling: independent Shopping: independent Preparing meals: independent Housework: independent Taking medicine: independent Managing money: independent PHQ-9 Over the last 2 weeks, how often have you been bothered by any of the following problems? 1. Little interest or pleasure in doing things: not at all 2. Feeling down, depressed, or hopeless: not at all 3. Trouble falling or staying asleep, or sleeping too much: not at all 4. Feeling tired or having little energy: not at all 5. Poor appetite or overeating: not at all 6. Feeling bad about yourself - or that you are a failure or have let yourself or your family down: not at all 7. Trouble concentrating on things, such as reading the newspaper or watching television: not at all 8. Moving or speaking so slowly that other people could have noticed. Or the opposite - being so fidgety or restless that you have been moving around a lot more than usual: not at all 9. Thoughts that you would be better off or of hurting yourself in some way: not at all Total score: 0 Depression Screening Interpretation: Negative Depression Screening Done: Yes 16616 - PHQ-9 Billing: Yes Source: Developed by Drs. Erick Thayer, Laura Pope, Daniel Acosta and colleagues, with an educational mariel from [employer]. Physical Exam Vital Signs: Last Vital Signs Temp 98.1 F 03/23/25 10:51 Pulse 95 03/23/25 10:51 Resp 16 03/23/25 10:51 BP 134/64 03/23/25 10:51 Pulse Ox 95 03/23/25 10:51 Oxygen Delivery Method Room Air 03/23/25 10:51 BMI result Body Mass Index 42.8 Assessment & Plan Assessment & Plan (1) Encounter for subsequent annual wellness visit in Medicare patient: Code(s): Z00.00 - Encounter for general adult medical examination without abnormal findings Plan: Medical wellness checklist reviewed, discussed with patient and updated. Up-to-date with her advanced directives. Up-to-date with her patient's, reminded to get her flu vaccine (2) Type 2 diabetes mellitus with hyperglycemia, with long-term current use of insulin: Code(s): E11.65 - Type 2 diabetes mellitus with hyperglycemia; Z79.4 - MCFP (current) use of insulin Plan: Currently followed at [facility] endocrine clinic, on insulin pump and checking with Dexcom currently on Ozempic, metformin and insulin by Omnipod (3) Morbid obesity: Code(s): E66.01 - Morbid (severe) obesity due to excess calories Plan: Reinforced importance of adhering to a low cholesterol diet, low in saturated and trans fats, engage in regular ordered intensity exercise, encouraged to go to the senior center to joint exercise program. (4) Essential hypertension: Code(s): I10 - Essential (primary) hypertension Plan: Blood pressure at goal of less than 130/80. Continue with current medication. Reinforced importance of following a low sodium diet, getting regular exercise, and lowering stress levels. (5) Dyslipidemia: Code(s): E78.5 - Hyperlipidemia, unspecified Plan: Patient reminded to get her fasting lipid levels checked. Continued simvastatin 40 mg at bedtime (6) Osteopenia: Code(s): M85.80 - Other specified disorders of bone density and structure, unspecified site Plan: Do regular weight bearing exercise, take adequate calcium from dietary sources and continue taking vitamin-D 3 supplements at least 2000 units daily Quality Reporting (2019) Depression/Bipolar (159/160/161/177) PHQ-9: Total score: 0 Coding Level of Care Code Medicare Subsequent (G0439) Diagnoses Encounter for subsequent annual wellness visit in Medicare patient Z00.00 Type 2 diabetes mellitus with hyperglycemia, with long-term current use of insulin E11.65; Z79.4 Morbid obesity E66.01 Essential hypertension I10 Dyslipidemia E78.5 Osteopenia M85.80 CPT Codes Advance Care Planning - Advance Care Planning discussion: On file, no changes ([id number]) Advance Care Planning - Time spent: 1-15 minutes, on File ([id number]) Additional Codes PHQ-9 - 17201 - PHQ-9 Billing: Yes ([id number]) Advance Care Planning Advance Care Planning discussion: On file, no changes Date of discussion: 03/23/25 Who was present: Patient Forms completed: Health Care Proxy and MOLST Time spent: 1-15 minutes, on File Actual minutes spent: 1
[2025-03-23 10:51] VITALS: BP 134/64; PULSE 95; RESP 16; TEMP 36.7; O2SAT 95; BMI 42.8
== END 2025-03-23 13:52 | disposition home or self-care (01) ==
LOC: HO.HMCC 10:43
PROVIDERS: PCP Internal Medicine; Visit Provider Internal Medicine
DX: Z00.00 Encounter for general adult medical examination without abnormal findings (principal); E11.65 Type 2 diabetes mellitus with hyperglycemia; Z79.4 Long term (current) use of insulin; E66.01 Morbid (severe) obesity due to excess calories; I10 Essential (primary) hypertension; E78.5 Hyperlipidemia, unspecified; M85.80 Other specified disorders of bone density and structure, unspecified site

== ENCOUNTER → 2025-03-23 10:43 | Outpatient (BNVA) | payer MEDICARE, SELFPAY | PROVIDERS: PCP Internal Medicine; Visit Provider Internal Medicine | DX: Z13.31 Encounter for screening for depression (principal) | CPT/HCPCS: 96127 ==